=== PATIENT | female | born 1945 | race Caucasian/White ===

== ENCOUNTER 2018-12-16 09:57 | Inpatient (IN) | payer MEDICARE ==
[2018-12-16] MEDS ORDERED: Tuberculin, PPD 5 Units/0.1 ML 1 ML MDV IDERM ONE (16:00)
[2018-12-16] MEDS ORDERED: HYPROMELLOSE OP PRN (16:11)
[2018-12-16] MEDS ORDERED: DEXTRAN OP PRN (16:11)
[2018-12-16] MEDS ORDERED: LIDOCAINE TP SCH (16:15)
[2018-12-16] MEDS ORDERED: LIDOCAINE TP PRN (16:36)
[2018-12-16] MEDS: Acetaminophen 325 MG Tab PO SCH ×2 (18:15→20:37)
[2018-12-16] MEDS: Carbidopa/Levodopa 25-100 MG Tab PO SCH ×2 (19:44)
[2018-12-16] MEDS: Pantoprazole 40 MG Tab.CR PO SCH (19:44)
[2018-12-16] MEDS: Melatonin 3 MG Tab PO SCH (19:44)
[2018-12-16] MEDS ORDERED: CARBIDOPA PO SCH (20:00)
[2018-12-16] MEDS ORDERED: Non-Formulary Medication 1 Each (Carboxymethylcellulos/Glycerin [Refresh Optive] 1 DROP) EYEBOTH SCH (20:00)
[2018-12-16] MEDS ORDERED: Carboxymethylcellulose Sodium 1% Ophth Gel 15 ML Bottle EYEBOTH SCH (20:00)
[2018-12-16] MEDS ORDERED: LEVODOPA PO SCH (20:00)
[2018-12-17] MEDS: Ibuprofen 600 MG Tab PO PRN ×3 (04:47→19:19)
[2018-12-17] MEDS ORDERED: VITAMIN B COMPLEX PO SCH (08:00)
[2018-12-17] MEDS: Acetaminophen 325 MG Tab PO SCH ×4 (08:21→20:10)
[2018-12-17] MEDS: DULoxetine 60 MG Cap PO SCH (08:22)
[2018-12-17] MEDS: Polyethylene Glycol 3350 Powder 17 GM Packet PO SCH (08:22)
[2018-12-17] MEDS: Carbidopa/Levodopa 25-100 MG Tab PO SCH ×3 (08:22→20:09)
[2018-12-17] MEDS: Polyvinyl Alcohol 1.4% Ophth Soln 15 ML Bottle EYEBOTH SCH ×3 (12:04→20:10)
[2018-12-17] MEDS: Melatonin 3 MG Tab PO SCH (20:09)
[2018-12-17] MEDS: Pantoprazole 40 MG Tab.CR PO SCH (20:10)
[2018-12-18] MEDS: Ibuprofen 600 MG Tab PO PRN ×3 (03:10→17:15)
[2018-12-18] MEDS: Polyethylene Glycol 3350 Powder 17 GM Packet PO SCH (07:39)
[2018-12-18] MEDS: Lidocaine 5% 700 MG Patch TRDERM SCH (07:40)
[2018-12-18] MEDS: Polyvinyl Alcohol 1.4% Ophth Soln 15 ML Bottle EYEBOTH SCH ×4 (07:43→19:59)
[2018-12-18] MEDS: Acetaminophen 325 MG Tab PO SCH ×4 (07:44→19:57)
[2018-12-18] MEDS: DULoxetine 60 MG Cap PO SCH (07:44)
[2018-12-18] MEDS: Carbidopa/Levodopa 25-100 MG Tab PO SCH ×3 (07:44→19:57)
[2018-12-18] MEDS: Multivitamins with Iron/Calcium/Folic Acid/Minerals Tab PO SCH (07:45)
--- NOTE | 2018-12-18 09:44 | PCM.HP ---
H&P History of Present Illness - General Date of Service: 12/16/18 Admit Problem/Dx: Admission Diagnosis/Problem Admission Diagnosis/Problem Weakness Source of Information: Old Records, RN Notes Reviewed History Limitations: Reports: Other (dementia) - History of Present Illness Initial Comments - Free Text/Narative: This is a pleasant 73yo F admitted to swing bed post C1-C2 vertebral facture. She has family in [place] and they state she has a PMH of progressive supranuclear palsy. She is in a hard collar and wheelchair but is working with therapy for ambulation and transfers while maintaining immobilization of her vertebrae. Onset of Symptoms: Reports: Sudden Location: Reports: Neck Severity: Severe Associated Symptoms: Reports: Weakness Posterior Neck Pain Score (Numeric/FACES): 0 - Related Data Allergies/Adverse Reactions: Allergies Allergy/AdvReac Type Severity Reaction Status Date / Time metronidazole Allergy Cannot Verified 12/16/18 10:46 Remember nortriptyline Allergy Cannot Verified 12/16/18 10:46 Remember tramadol Allergy Cannot Verified 12/16/18 10:46 Remember Home Medications: Home Meds Acetaminophen [Tylenol] 650 mg PO QID 12/16/18 [History] Carbidopa/Levodopa [Carbidopa-Levo ER 25-100] 1 each PO TID 12/16/18 [History] Carboxymethylcellulos/Glycerin [Refresh Optive] 1 drop EYEBOTH QID 12/16/18 [ History] Carboxymethylcellulose Sodium [Refresh Liquigel 1% Ophth Soln] 2 drop OP QPM [History] DULoxetine [Cymbalta] 60 mg PO DAILY 12/16/18 [History] Dextran 70/Hypromellose [Artificial Tears] 1 - 2 drop OP BID PRN 12/16/18 [ History] Ibuprofen 600 mg PO Q6H PRN 12/16/18 [History] Lidocaine [Aspercreme] 1 each TP Q12H 12/16/18 [History] Melatonin 6 mg PO QPM 12/16/18 [History] Pantoprazole Sodium [Protonix] 40 mg PO QPM 12/16/18 [History] Polyethylene Glycol 3350 [MiraLAX] 17 gm PO DAILY 12/16/18 [History] Sennosides/Docusate Sodium [Senna-Docusate Sodium Tablet] 1 each PO DAILY [History] Vitamin B Complex [B Complex] 1 each PO DAILY 12/16/18 [History] Past Medical History Gastrointestinal History: Reports: GERD Musculoskeletal History: Reports: Fracture, Other (See Below) Other Musculoskeletal History: C1 and C2 closed fracture; multiple closed freactures of facial bones Neurological History: Reports: Parkinson's Psychiatric History: Reports: Dementia - Past Surgical History GI Surgical History: Reports: None Neurological Surgical History: Reports: None Musculoskeletal Surgical History: Reports: None Social & Family History - Family History Family Medical History: Noncontributory H&P Review of Systems - Review of Systems: Review Of Systems: ROS reveals no pertinent complaints other than HPI. Exam - Exam Exam: See Below - Vital Signs Vital Signs: Last Vital Signs Temp 35.8 C 12/18/18 07:30 Pulse 74 12/18/18 07:30 Resp 17 12/17/18 19:47 BP 122/68 12/18/18 07:30 Pulse Ox 98 12/18/18 07:30 Weight: 53.796 kg - Exam General: Alert, Cooperative HEENT: PERRLA, Conjunctiva Clear, EACs Clear, EOMI Neck: Other (hard collar present) Lungs: Clear to Auscultation, Normal Respiratory Effort Cardiovascular: Regular Rate, Regular Rhythm GI/Abdominal Exam: Normal Bowel Sounds, Soft, Non-Tender Back Exam: Normal Inspection Extremities: Normal Inspection, Normal Range of Motion Peripheral Pulses: 2+: Dorsalis Pedis (L), Dorsalis Pedis (R) Skin: Warm, Dry, Intact Neurological: Cranial Nerves Intact, Reflexes Equal Bilateral Neuro Extensive - Mental Status: Disorientation to Place, Disorientation to Time Psychiatric: Alert, Labile Mood - Patient Data Alejandro Results Last 24 hrs: Microbiology 12/16/18 13:14 MRSA Surveillance Culture - Final Nasal, Unspecified NO MRSA ISOLATED - Problem List (1) Fracture of cervical spine without spinal cord lesion SNOMED Code(s): 907257174 ICD Code: S12.9XXA - FRACTURE OF NECK, UNSPECIFIED, INITIAL ENCOUNTER Status: Acute Priority: High Current Visit: Yes Qualifiers: Encounter type: subsequent encounter Qualified Code(s): S12.9XXD - Fracture of neck, unspecified, subsequent encounter (2) Multiple facial bone fractures SNOMED Code(s): 964326432 ICD Code: S02.92XA - UNSP FRACTURE OF FACIAL BONES, INIT FOR CLOS FX Status : Acute Priority: High Current Visit: Yes (3) Traumatic ecchymosis of forehead SNOMED Code(s): 297271773 ICD Code: S00.83XA - CONTUSION OF OTHER PART OF HEAD, INITIAL ENCOUNTER Status: Acute Priority: High Current Visit: Yes Problem List Initiated/Reviewed/Updated: Yes Orders Last 24hrs: Active Orders 24 hr Category Date Time Status Lidocaine 5% [Lidoderm 5%] Med 12/18/18 08:00 Active 700 mg TRDERM DAILY Multivitamins w-Iron/Ca/FA/Min [Thera M Plus] Med 12/18/18 08:00 Active 1 tab PO DAILY Polyvinyl Alcohol [LiquiTears 1.4% Ophth Soln] Med 12/17/18 12:00 Active 1 - 2 ml EYEBOTH QID Remove Patch Med 12/18/18 08:00 Active 1 ea TRDERM DAILY Tuberculin, PPD [Aplisol] Med 12/30/18 16:30 Once 5 unit IDERM ONETIME ONE Medication Orders Acetaminophen (Tylenol) 650 mg PO QID [facility] Last Admin: 12/18/18 07:44 Dose: 650 mg Admin: 12/17/18 20:10 Dose: 650 mg Admin: 12/17/18 16:50 Dose: 650 mg Admin: 12/17/18 12:03 Dose: 650 mg Admin: 12/17/18 08:21 Dose: 650 mg Admin: 12/16/18 20:37 Dose: Not Given Admin: 12/16/18 18:15 Dose: 650 mg Artificial Tears (Refresh Liquigel 1%) 0 ml EYEBOTH QPM [facility] Last Admin: 12/16/18 20:37 Dose: 2 drop Artificial Tears (Liquitears 1.4% Ophth Soln) 1 - 2 ml EYEBOTH QID [facility] Last Admin: 12/18/18 07:43 Dose: 1 ml Admin: 12/17/18 20:10 Dose: 1 ml Admin: 12/17/18 16:50 Dose: 1 ml Admin: 12/17/18 12:04 Dose: 1 ml Carbidopa/Levodopa (Sinemet 25-100 Mg) 1 tab PO TID [facility] Last Admin: 12/18/18 07:44 Dose: 1 tab Admin: 12/17/18 20:09 Dose: 1 tab Admin: 12/17/18 14:59 Dose: 1 tab Admin: 12/17/18 08:22 Dose: 1 tab Admin: 12/16/18 19:44 Dose: 1 tab Admin: 12/16/18 19:44 Dose: Not Given Duloxetine HCl (Cymbalta) 60 mg PO DAILY [facility] Last Admin: 12/18/18 07:44 Dose: 60 mg Admin: 12/17/18 08:22 Dose: 60 mg Ibuprofen (Motrin) 600 mg PO Q6H PRN PRN Reason: Pain Last Admin: 12/18/18 03:10 Dose: 600 mg Admin: 12/17/18 19:19 Dose: 600 mg Admin: 12/17/18 12:18 Dose: 600 mg Admin: 12/17/18 04:47 Dose: 600 mg Lidocaine (Lidoderm 5%) 700 mg TRDERM DAILY [facility] Last Admin: 12/18/18 07:40 Dose: 700 mg Melatonin (Melatonin) 6 mg PO QPM [facility] Last Admin: 12/17/18 20:09 Dose: 6 mg Admin: 12/16/18 19:44 Dose: 6 mg Miscellaneous Information (Remove Patch) 1 ea TRDERM DAILY [facility] Multivitamins/Minerals (Thera M Plus) 1 tab PO DAILY [facility] Last Admin: 12/18/18 07:45 Dose: 1 tab Pantoprazole Sodium (Protonix) 40 mg PO QPM [facility] Last Admin: 12/17/18 20:10 Dose: 40 mg Admin: 12/16/18 19:44 Dose: 40 mg Polyethylene Glycol (Miralax) 17 gm PO DAILY [facility] Last Admin: 12/18/18 07:39 Dose: 17 gm Admin: 12/17/18 08:22 Dose: 17 gm Senna/Docusate Sodium (Senna Plus) 1 tab PO DAILY [facility] Last Admin: 12/18/18 07:45 Dose: 1 tab Admin: 12/17/18 08:21 Dose: 1 tab Tuberculin PPD (Aplisol) 5 unit IDERM ONETIME ONE Stop: 12/30/18 16:31 Assessment/Plan Comment:: Patient admitted to swing bed for physical and occupational therapy and strengthening. We will continue to closely monitor C1-C2 management. Continue pain management.
[2018-12-18] MEDS ORDERED: Ondansetron 4 MG Tab.DIS PO PRN (16:47)
[2018-12-18] MEDS: LORazepam 0.5 MG Tab PO PRN (19:56)
[2018-12-18] MEDS: Pantoprazole 40 MG Tab.CR PO SCH (19:57)
[2018-12-18] MEDS: Melatonin 3 MG Tab PO SCH (19:59)
[2018-12-19] MEDS: Ibuprofen 600 MG Tab PO PRN ×2 (03:16→20:14)
[2018-12-19] MEDS: Polyethylene Glycol 3350 Powder 17 GM Packet PO SCH (08:30)
[2018-12-19] MEDS: Polyvinyl Alcohol 1.4% Ophth Soln 15 ML Bottle EYEBOTH SCH ×4 (08:31→20:17)
[2018-12-19] MEDS: Lidocaine 5% 700 MG Patch TRDERM SCH (08:31)
[2018-12-19] MEDS: DULoxetine 60 MG Cap PO SCH (08:35)
[2018-12-19] MEDS: Acetaminophen 325 MG Tab PO SCH ×4 (08:35→20:16)
[2018-12-19] MEDS: Multivitamins with Iron/Calcium/Folic Acid/Minerals Tab PO SCH (08:36)
[2018-12-19] MEDS: Carbidopa/Levodopa 25-100 MG Tab PO SCH ×3 (08:36→20:14)
[2018-12-19] MEDS: Pantoprazole 40 MG Tab.CR PO SCH (20:14)
[2018-12-19] MEDS: Melatonin 3 MG Tab PO SCH (20:15)
[2018-12-20] MEDS: DULoxetine 60 MG Cap PO SCH (08:20)
[2018-12-20] MEDS: Multivitamins with Iron/Calcium/Folic Acid/Minerals Tab PO SCH (08:20)
[2018-12-20] MEDS: Carbidopa/Levodopa 25-100 MG Tab PO SCH ×3 (08:20→19:24)
[2018-12-20] MEDS: Acetaminophen 325 MG Tab PO SCH ×4 (08:21→19:23)
[2018-12-20] MEDS: Polyvinyl Alcohol 1.4% Ophth Soln 15 ML Bottle EYEBOTH SCH ×4 (08:21→19:32)
[2018-12-20] MEDS: Lidocaine 5% 700 MG Patch TRDERM SCH (08:22)
[2018-12-20] MEDS: Polyethylene Glycol 3350 Powder 17 GM Packet PO SCH (08:22)
[2018-12-20] MEDS: Melatonin 3 MG Tab PO SCH (19:23)
[2018-12-20] MEDS: Pantoprazole 40 MG Tab.CR PO SCH (19:23)
[2018-12-20] MEDS: Ibuprofen 600 MG Tab PO PRN (19:32)
[2018-12-21] MEDS: Lidocaine 5% 700 MG Patch TRDERM SCH (07:39)
[2018-12-21] MEDS: Polyvinyl Alcohol 1.4% Ophth Soln 15 ML Bottle EYEBOTH SCH ×4 (07:39→19:48)
[2018-12-21] MEDS: Multivitamins with Iron/Calcium/Folic Acid/Minerals Tab PO SCH (07:39)
[2018-12-21] MEDS: Polyethylene Glycol 3350 Powder 17 GM Packet PO SCH (07:39)
[2018-12-21] MEDS: Carbidopa/Levodopa 25-100 MG Tab PO SCH ×3 (07:39→19:50)
[2018-12-21] MEDS: DULoxetine 60 MG Cap PO SCH (07:39)
[2018-12-21] MEDS: Acetaminophen 325 MG Tab PO SCH ×4 (07:40→19:52)
[2018-12-21] MEDS: Ibuprofen 600 MG Tab PO PRN ×2 (08:19→19:50)
[2018-12-21] MEDS: Pantoprazole 40 MG Tab.CR PO SCH (19:48)
[2018-12-21] MEDS: Melatonin 3 MG Tab PO SCH (19:48)
[2018-12-22] MEDS: Ibuprofen 600 MG Tab PO PRN ×2 (07:36→18:00)
[2018-12-22] MEDS: DULoxetine 60 MG Cap PO SCH (08:27)
[2018-12-22] MEDS: Carbidopa/Levodopa 25-100 MG Tab PO SCH ×3 (08:28→19:40)
[2018-12-22] MEDS: Polyethylene Glycol 3350 Powder 17 GM Packet PO SCH (08:28)
[2018-12-22] MEDS: Acetaminophen 325 MG Tab PO SCH ×4 (08:28→19:40)
[2018-12-22] MEDS: Multivitamins with Iron/Calcium/Folic Acid/Minerals Tab PO SCH (08:28)
[2018-12-22] MEDS: Polyvinyl Alcohol 1.4% Ophth Soln 15 ML Bottle EYEBOTH SCH ×4 (08:28→19:45)
[2018-12-22] MEDS: Lidocaine 5% 700 MG Patch TRDERM SCH (08:29)
[2018-12-22] MEDS: Melatonin 3 MG Tab PO SCH (19:39)
[2018-12-22] MEDS: Pantoprazole 40 MG Tab.CR PO SCH (19:40)
[2018-12-23] MEDS: Carbidopa/Levodopa 25-100 MG Tab PO SCH ×3 (07:28→20:09)
[2018-12-23] MEDS: DULoxetine 60 MG Cap PO SCH (07:28)
[2018-12-23] MEDS: Polyethylene Glycol 3350 Powder 17 GM Packet PO SCH (07:29)
[2018-12-23] MEDS: Acetaminophen 325 MG Tab PO SCH ×4 (07:29→20:08)
[2018-12-23] MEDS: Lidocaine 5% 700 MG Patch TRDERM SCH (07:29)
[2018-12-23] MEDS: Multivitamins with Iron/Calcium/Folic Acid/Minerals Tab PO SCH (07:29)
[2018-12-23] MEDS: Polyvinyl Alcohol 1.4% Ophth Soln 15 ML Bottle EYEBOTH SCH ×4 (07:30→20:11)
[2018-12-23] MEDS: Melatonin 3 MG Tab PO SCH (20:07)
[2018-12-23] MEDS: Pantoprazole 40 MG Tab.CR PO SCH (20:09)
[2018-12-23] MEDS: Ibuprofen 600 MG Tab PO PRN (20:11)
[2018-12-24] MEDS: Lidocaine 5% 700 MG Patch TRDERM SCH (08:49)
[2018-12-24] MEDS: DULoxetine 60 MG Cap PO SCH (08:49)
[2018-12-24] MEDS: Acetaminophen 325 MG Tab PO SCH ×4 (08:49→20:41)
[2018-12-24] MEDS: Multivitamins with Iron/Calcium/Folic Acid/Minerals Tab PO SCH (08:49)
[2018-12-24] MEDS: Carbidopa/Levodopa 25-100 MG Tab PO SCH ×3 (08:49→20:41)
[2018-12-24] MEDS: Polyethylene Glycol 3350 Powder 17 GM Packet PO SCH (08:51)
[2018-12-24] MEDS: Polyvinyl Alcohol 1.4% Ophth Soln 15 ML Bottle EYEBOTH SCH ×4 (08:51→20:43)
[2018-12-24] MEDS: Ibuprofen 600 MG Tab PO PRN (14:25)
--- NOTE | 2018-12-24 16:35 | CT ---
Date of Service: 12/24/18 Clinical Data: UNENHANCED BRAIN CT: Multislice acquisition through the brain without IV contrast was performed. No priors. There is diffuse cerebral atrophy. There are periventricular lucencies bilaterally consistent with small vessel ischemic change. No masses or mass effect. No intracranial hemorrhage. There are multiple facial fractures. There is a comminuted fracture through the zygomatic arch on the left. There is also a comminuted displaced fracture through the lateral wall of the left maxillary sinus and a comminuted minimally displaced fracture through the lateral wall of the left orbit. There is a minimally displaced comminuted fracture through the lateral wall of the right orbit. There is a displaced comminuted fracture through the lateral wall of the right maxillary sinus. There is also a faint lucency through the parietal bone on the right suspicious for a fracture There is fluid and mucosal thickening in the right maxillary sinus. There is also mucosal thickening in the left maxillary sinus. There is deviation of the nasal septum to the right. There is a comminuted fracture through the anterior arch of C1. I do not see any other definite fractures. [id number] [facility]
--- NOTE | 2018-12-24 16:42 | CT ---
Date of Service: 12/24/18 Clinical Data: CERVICAL SPINE CT: Multislice axial acquisition was performed. Axial images and sagittal and coronal reformations are reviewed. There is a comminuted fracture through the anterior arch of C1. There are multiple osseous fragments adjacent to the odontoid process of C2. These do appear to be partially corticated and may be chronic. I do not see any other fractures. There is slight anterolisthesis of C3 on C4 and of C4 on C5. There is degenerative disk disease throughout the cervical spine. There is facet joint hypertrophy throughout the cervical spine. No other acute abnormalities. The visualized lung apices are clear. The soft tissues are unremarkable. The patient's physician was notified of these findings. [id number] [facility]TD[facility]
[2018-12-24] MEDS: Ciprofloxacin 500 MG Tab PO SCH (20:41)
[2018-12-24] MEDS: Pantoprazole 40 MG Tab.CR PO SCH (20:41)
[2018-12-24] MEDS: Melatonin 3 MG Tab PO SCH (20:41)
[2018-12-24] MEDS: LORazepam 0.5 MG Tab PO PRN (21:16)
[2018-12-25] MEDS: Ibuprofen 600 MG Tab PO PRN ×2 (05:16→19:27)
[2018-12-25] MEDS: Polyvinyl Alcohol 1.4% Ophth Soln 15 ML Bottle EYEBOTH SCH ×4 (08:21→19:27)
[2018-12-25] MEDS: Polyethylene Glycol 3350 Powder 17 GM Packet PO SCH (08:21)
[2018-12-25] MEDS: Lidocaine 5% 700 MG Patch TRDERM SCH (08:21)
[2018-12-25] MEDS: Multivitamins with Iron/Calcium/Folic Acid/Minerals Tab PO SCH (08:22)
[2018-12-25] MEDS: Ciprofloxacin 500 MG Tab PO SCH ×2 (08:22→19:26)
[2018-12-25] MEDS: Acetaminophen 325 MG Tab PO SCH ×4 (08:22→19:26)
[2018-12-25] MEDS: Carbidopa/Levodopa 25-100 MG Tab PO SCH ×3 (08:22→19:27)
[2018-12-25] MEDS: DULoxetine 60 MG Cap PO SCH (08:22)
[2018-12-25] MEDS: LORazepam 0.5 MG Tab PO PRN (19:26)
[2018-12-25] MEDS: Melatonin 3 MG Tab PO SCH (19:26)
[2018-12-25] MEDS: Pantoprazole 40 MG Tab.CR PO SCH (19:27)
[2018-12-26] MEDS: Carbidopa/Levodopa 25-100 MG Tab PO SCH ×3 (08:02→20:12)
[2018-12-26] MEDS: Ciprofloxacin 500 MG Tab PO SCH ×2 (08:02→20:12)
[2018-12-26] MEDS: Polyethylene Glycol 3350 Powder 17 GM Packet PO SCH (08:02)
[2018-12-26] MEDS: DULoxetine 60 MG Cap PO SCH (08:03)
[2018-12-26] MEDS: Multivitamins with Iron/Calcium/Folic Acid/Minerals Tab PO SCH (08:03)
[2018-12-26] MEDS: Ibuprofen 600 MG Tab PO PRN ×2 (08:03→20:11)
[2018-12-26] MEDS: Acetaminophen 325 MG Tab PO SCH ×4 (08:03→20:10)
[2018-12-26] MEDS: Lidocaine 5% 700 MG Patch TRDERM SCH (08:04)
[2018-12-26] MEDS: Polyvinyl Alcohol 1.4% Ophth Soln 15 ML Bottle EYEBOTH SCH ×4 (08:04→20:17)
[2018-12-26] MEDS: Melatonin 3 MG Tab PO SCH (20:10)
[2018-12-26] MEDS: Pantoprazole 40 MG Tab.CR PO SCH (20:11)
[2018-12-26] MEDS: LORazepam 0.5 MG Tab PO PRN (20:12)
--- NOTE | 2018-12-26 21:35 | PCM.PN ---
- General Info Date of Service: 12/26/18 Subjective Update: Apparently patient had fall on , where she slid off her bed and landed on the soft padding on the floor. she did sustained a brusie over the right latera eye borw. No other injuries. Pt did have her C-collar on.She did have CT Cspine and head, as the nursing staff taught she was slightly confused and tired since the fall. Functional Status: Reports: Pain Controlled, Tolerating Diet, Ambulating, Urinating - Review of Systems General: Reports: Weakness, Fatigue. Denies: Fever HEENT: Denies: Sinus Congestion, Sore Throat Cardiovascular: Denies: Chest Pain, Palpitations Gastrointestinal: Denies: Abdominal Pain, Nausea, Vomiting Genitourinary: Denies: Dysuria, Frequency Musculoskeletal: Denies: Joint Pain, Joint Swelling Neurological: Denies: Confusion, Dizziness, Headache, Numbness, Tingling - Patient Data Vitals - Most Recent: Last Vital Signs Temp 98.1 F 12/26/18 08:00 Pulse 85 12/26/18 08:00 Resp 18 12/25/18 10:00 BP 117/64 12/26/18 08:00 Pulse Ox 96 12/26/18 08:00 Weight - Most Recent: 53.796 kg Alejandro Results Last 24 Hours: Microbiology 12/24/18 16:50 Urine Culture - Final Urine, Catheterized Escherichia Coli Med Orders - Current: Current Medications Acetaminophen (Tylenol) 650 mg PO QID [facility] Last Admin: 12/26/18 20:10 Dose: 650 mg Artificial Tears (Liquitears 1.4% Ophth Soln) 1 - 2 ml EYEBOTH QID [facility] Last Admin: 12/26/18 20:17 Dose: 1 drop Carbidopa/Levodopa (Sinemet 25-100 Mg) 1 tab PO TID [facility] Last Admin: 12/26/18 20:12 Dose: 1 tab Ciprofloxacin (Ciprofloxacin Hcl) 500 mg PO BID [facility] Stop: 12/31/18 08:00 Last Admin: 12/26/18 20:12 Dose: 500 mg Duloxetine HCl (Cymbalta) 60 mg PO DAILY [facility] Last Admin: 12/26/18 08:03 Dose: 60 mg Ibuprofen (Motrin) 600 mg PO Q6H PRN PRN Reason: Pain Last Admin: 12/26/18 20:11 Dose: 600 mg Lidocaine (Lidoderm 5%) 700 mg TRDERM DAILY [facility] Last Admin: 12/26/18 08:04 Dose: 700 mg Lorazepam (Ativan) 0.5 mg PO Q8H PRN PRN Reason: Agitation Last Admin: 12/26/18 20:12 Dose: 0.5 mg Melatonin (Melatonin) 6 mg PO QPM [facility] Last Admin: 12/26/18 20:10 Dose: 6 mg Miscellaneous Information (Remove Patch) 1 ea TRDERM DAILY@1999 [facility] Last Admin: 12/25/18 20:00 Dose: 1 ea Multivitamins/Minerals (Thera M Plus) 1 tab PO DAILY [facility] Last Admin: 12/26/18 08:03 Dose: 1 tab Ondansetron HCl (Zofran Odt) 4 mg PO Q6H PRN PRN Reason: Nausea/Vomiting Pantoprazole Sodium (Protonix) 40 mg PO QPM [facility] Last Admin: 12/26/18 20:11 Dose: 40 mg Polyethylene Glycol (Miralax) 17 gm PO DAILY [facility] Last Admin: 12/26/18 08:02 Dose: 17 gm Senna/Docusate Sodium (Senna Plus) 1 tab PO DAILY [facility] Last Admin: 12/26/18 08:03 Dose: 1 tab Tuberculin PPD (Aplisol) 5 unit IDERM ONETIME ONE Stop: 12/30/18 16:31 Discontinued Medications Artificial Tears (Refresh Liquigel 1%) 0 ml EYEBOTH QPM [facility] Last Admin: 12/16/18 20:37 Dose: 2 drop Miscellaneous Information (Remove Patch) 1 ea TRDERM DAILY [facility] Last Admin: 12/18/18 10:43 Dose: Not Given Tuberculin PPD (Aplisol) 5 unit IDERM ONETIME ONE Stop: 12/16/18 16:01 Last Admin: 12/16/18 16:30 Dose: 5 unit - Exam General: Alert, Oriented, Cooperative, Other (C-collar in palce) HEENT: Pupils Equal, Pupils Reactive, EOMI, Mucous Membr. Moist/[place] Neck: Supple Lungs: Clear to Auscultation, Normal Respiratory Effort Cardiovascular: Regular Rate, Regular Rhythm GI/Abdominal Exam: Normal Bowel Sounds, Soft, Non-Tender, No Organomegaly, No Distention, No Abnormal Bruit, No Mass, Pelvis Stable Extremities: Normal Inspection, Normal Range of Motion, Non-Tender, No Pedal Edema, Normal Capillary Refill Skin: Warm, Intact, Ecchymosis, Other (over the right lateral aspect of the eyebrow about 2 cm , minimal tenderness to touch.) - Problem List & Annotations (1) Fracture of cervical spine without spinal cord lesion SNOMED Code(s): 628668494 Code(s): S12.9XXA - FRACTURE OF NECK, UNSPECIFIED, INITIAL ENCOUNTER Status : Acute Current Visit: Yes (2) Multiple facial bone fractures SNOMED Code(s): 193473797 Code(s): S02.92XA - UNSP FRACTURE OF FACIAL BONES, INIT FOR CLOS FX Status : Acute Current Visit: Yes (3) UTI (urinary tract infection) SNOMED Code(s): 18079231 Code(s): N39.0 - URINARY TRACT INFECTION, SITE NOT SPECIFIED Status: Acute Current Visit: Yes (4) Traumatic ecchymosis of forehead SNOMED Code(s): 967449182 Code(s): S00.83XA - CONTUSION OF OTHER PART OF HEAD, INITIAL ENCOUNTER Status: Acute Current Visit: Yes - Problem List Review Problem List Initiated/Reviewed/Updated: Yes - Assessment Assessment:: C1 comminuted fracture in C-collar Multiple recent facial fractures UTI - Plan Plan:: Pt's head Ct was negative for bleed. CT C-spine shows recent facial fractures and C 1 fracture. No new injury other than right eyebrow ecchymosis Her UA show + leucs with 30-40 wbc. Pt was started cipro 500mg BID for 1 wk. Also increased fluid intake orally.
[2018-12-27] MEDS: Acetaminophen 325 MG Tab PO SCH ×4 (08:15→19:52)
[2018-12-27] MEDS: Lidocaine 5% 700 MG Patch TRDERM SCH (08:15)
[2018-12-27] MEDS: Polyvinyl Alcohol 1.4% Ophth Soln 15 ML Bottle EYEBOTH SCH ×4 (08:15→19:51)
[2018-12-27] MEDS: Polyethylene Glycol 3350 Powder 17 GM Packet PO SCH (08:15)
[2018-12-27] MEDS: DULoxetine 60 MG Cap PO SCH (08:16)
[2018-12-27] MEDS: Ciprofloxacin 500 MG Tab PO SCH ×2 (08:16→19:51)
[2018-12-27] MEDS: Carbidopa/Levodopa 25-100 MG Tab PO SCH ×3 (08:16→19:51)
[2018-12-27] MEDS: Multivitamins with Iron/Calcium/Folic Acid/Minerals Tab PO SCH (12:02)
[2018-12-27] MEDS: Ibuprofen 600 MG Tab PO PRN (14:07)
[2018-12-27] MEDS ORDERED: Ketorolac 10 MG Tab ONE (17:14)
[2018-12-27] MEDS ORDERED: Ketorolac 10 MG Tab PO ONE (17:40)
[2018-12-27] MEDS ORDERED: Ketorolac 30 MG/ML SDV IM ONE (19:00)
[2018-12-27] MEDS: Melatonin 3 MG Tab PO SCH (19:51)
[2018-12-27] MEDS: Pantoprazole 40 MG Tab.CR PO SCH (19:51)
[2018-12-27] MEDS: LORazepam 0.5 MG Tab PO PRN (19:52)
[2018-12-28] MEDS: Ibuprofen 600 MG Tab PO PRN ×3 (04:29→19:33)
[2018-12-28] MEDS: Acetaminophen 325 MG Tab PO SCH ×4 (08:06→19:34)
[2018-12-28] MEDS: Lidocaine 5% 700 MG Patch TRDERM SCH (08:06)
[2018-12-28] MEDS: Ciprofloxacin 500 MG Tab PO SCH ×2 (08:07→19:33)
[2018-12-28] MEDS: Carbidopa/Levodopa 25-100 MG Tab PO SCH ×3 (08:07→19:34)
[2018-12-28] MEDS: DULoxetine 60 MG Cap PO SCH (08:07)
[2018-12-28] MEDS: Polyvinyl Alcohol 1.4% Ophth Soln 15 ML Bottle EYEBOTH SCH ×4 (08:07→19:37)
[2018-12-28] MEDS: Polyethylene Glycol 3350 Powder 17 GM Packet PO SCH (08:08)
[2018-12-28] MEDS: Multivitamins with Iron/Calcium/Folic Acid/Minerals Tab PO SCH (11:48)
[2018-12-28] MEDS: Pantoprazole 40 MG Tab.CR PO SCH (19:33)
[2018-12-28] MEDS: LORazepam 0.5 MG Tab PO PRN (19:35)
[2018-12-28] MEDS: Melatonin 3 MG Tab PO SCH (19:35)
[2018-12-29] MEDS: DULoxetine 60 MG Cap PO SCH (08:41)
[2018-12-29] MEDS: Ciprofloxacin 500 MG Tab PO SCH ×2 (08:41→19:50)
[2018-12-29] MEDS: Acetaminophen 325 MG Tab PO SCH ×4 (08:41→19:51)
[2018-12-29] MEDS: Polyvinyl Alcohol 1.4% Ophth Soln 15 ML Bottle EYEBOTH SCH ×4 (08:42→20:01)
[2018-12-29] MEDS: Carbidopa/Levodopa 25-100 MG Tab PO SCH ×3 (08:42→19:51)
[2018-12-29] MEDS: Polyethylene Glycol 3350 Powder 17 GM Packet PO SCH (08:42)
[2018-12-29] MEDS: Lidocaine 5% 700 MG Patch TRDERM SCH (08:43)
[2018-12-29] MEDS: Multivitamins with Iron/Calcium/Folic Acid/Minerals Tab PO SCH (19:50)
[2018-12-29] MEDS: Melatonin 3 MG Tab PO SCH (19:50)
[2018-12-29] MEDS: Pantoprazole 40 MG Tab.CR PO SCH (19:51)
[2018-12-30] MEDS: Ciprofloxacin 500 MG Tab PO SCH ×2 (08:40→20:12)
[2018-12-30] MEDS: DULoxetine 60 MG Cap PO SCH (08:40)
[2018-12-30] MEDS: Carbidopa/Levodopa 25-100 MG Tab PO SCH ×3 (08:40→20:12)
[2018-12-30] MEDS: Acetaminophen 325 MG Tab PO SCH ×4 (08:41→21:19)
[2018-12-30] MEDS: Polyethylene Glycol 3350 Powder 17 GM Packet PO SCH (08:42)
[2018-12-30] MEDS: Lidocaine 5% 700 MG Patch TRDERM SCH (08:43)
[2018-12-30] MEDS: Polyvinyl Alcohol 1.4% Ophth Soln 15 ML Bottle EYEBOTH SCH ×4 (08:44→20:12)
[2018-12-30] MEDS: Multivitamins with Iron/Calcium/Folic Acid/Minerals Tab PO SCH (13:14)
[2018-12-30] MEDS ORDERED: Tuberculin, PPD 5 Units/0.1 ML 1 ML MDV IDERM ONE (16:30)
[2018-12-30] MEDS ORDERED: LORazepam 1 MG Tab ONE (19:54)
[2018-12-30] MEDS: LORazepam 1 MG Tab PO SCH (20:02)
[2018-12-30] MEDS: Melatonin 3 MG Tab PO SCH (20:12)
[2018-12-30] MEDS: Pantoprazole 40 MG Tab.CR PO SCH (20:12)
[2018-12-30] MEDS: Ibuprofen 600 MG Tab PO PRN (21:14)
[2018-12-30] MEDS: LORazepam 0.5 MG Tab PO PRN (21:16)
[2018-12-31] MEDS: Ciprofloxacin 500 MG Tab PO SCH (07:50)
[2018-12-31] MEDS: Acetaminophen 325 MG Tab PO SCH ×4 (07:51→20:17)
[2018-12-31] MEDS: Carbidopa/Levodopa 25-100 MG Tab PO SCH ×3 (07:51→20:18)
[2018-12-31] MEDS: Polyvinyl Alcohol 1.4% Ophth Soln 15 ML Bottle EYEBOTH SCH ×4 (07:51→20:18)
[2018-12-31] MEDS: DULoxetine 60 MG Cap PO SCH (07:51)
[2018-12-31] MEDS: Lidocaine 5% 700 MG Patch TRDERM SCH (07:52)
[2018-12-31] MEDS: Polyethylene Glycol 3350 Powder 17 GM Packet PO SCH (08:00)
[2018-12-31] MEDS: Multivitamins with Iron/Calcium/Folic Acid/Minerals Tab PO SCH (13:12)
[2018-12-31] MEDS: LORazepam 1 MG Tab PO SCH (20:17)
[2018-12-31] MEDS: Pantoprazole 40 MG Tab.CR PO SCH (20:17)
[2018-12-31] MEDS: Ibuprofen 600 MG Tab PO PRN (20:18)
[2018-12-31] MEDS: Melatonin 3 MG Tab PO SCH (20:18)
[2019-01-01] MEDS: Polyvinyl Alcohol 1.4% Ophth Soln 15 ML Bottle EYEBOTH SCH ×4 (07:56→19:28)
[2019-01-01] MEDS: Carbidopa/Levodopa 25-100 MG Tab PO SCH ×3 (07:56→19:24)
[2019-01-01] MEDS: DULoxetine 60 MG Cap PO SCH (07:56)
[2019-01-01] MEDS: Acetaminophen 325 MG Tab PO SCH ×4 (07:56→19:25)
[2019-01-01] MEDS: Polyethylene Glycol 3350 Powder 17 GM Packet PO SCH (07:56)
[2019-01-01] MEDS: Lidocaine 5% 700 MG Patch TRDERM SCH (07:57)
--- NOTE | 2019-01-01 09:55 | PCM.PN ---
- General Info Date of Service: 01/01/19 Subjective Update: Patient has not concerns or complaints. Staff have reported symptoms of agitation and searching for her family members in the [place]. She is more mobile and does appear to have sundowning. Functional Status: Reports: Pain Controlled, Tolerating Diet - Review of Systems General: Reports: Weakness HEENT: Reports: No Symptoms Pulmonary: Reports: No Symptoms Cardiovascular: Reports: No Symptoms Gastrointestinal: Reports: No Symptoms Musculoskeletal: Reports: Neck Pain Skin: Reports: No Symptoms Neurological: Reports: Weakness Psychiatric: Reports: No Symptoms - Patient Data Vitals - Most Recent: Last Vital Signs Temp 36.2 C 01/01/19 09:42 Pulse 81 01/01/19 09:42 Resp 18 01/01/19 09:42 BP 126/82 01/01/19 09:42 Pulse Ox 95 01/01/19 09:42 Weight - Most Recent: 53.796 kg Med Orders - Current: Current Medications Acetaminophen (Tylenol) 650 mg PO QID [facility] Last Admin: 01/01/19 07:56 Dose: 650 mg Artificial Tears (Liquitears 1.4% Ophth Soln) 1 - 2 ml EYEBOTH QID [facility] Last Admin: 01/01/19 07:56 Dose: 1 drop Carbidopa/Levodopa (Sinemet 25-100 Mg) 1 tab PO TID [facility] Last Admin: 01/01/19 07:56 Dose: 1 tab Duloxetine HCl (Cymbalta) 60 mg PO DAILY [facility] Last Admin: 01/01/19 07:56 Dose: 60 mg Ibuprofen (Motrin) 600 mg PO Q6H PRN PRN Reason: Pain Last Admin: 12/31/18 20:18 Dose: 600 mg Lidocaine (Lidoderm 5%) 700 mg TRDERM DAILY [facility] Last Admin: 01/01/19 07:57 Dose: 700 mg Lorazepam (Ativan) 0.5 mg PO Q8H PRN PRN Reason: Agitation Last Admin: 12/30/18 21:16 Dose: 0.5 mg Lorazepam (Ativan) 1 mg PO BEDTIME [facility] Last Admin: 12/31/18 20:17 Dose: 1 mg Melatonin (Melatonin) 6 mg PO QPM [facility] Last Admin: 12/31/18 20:18 Dose: 6 mg Miscellaneous Information (Remove Patch) 1 ea TRDERM DAILY@1999 [facility] Last Admin: 12/31/18 20:19 Dose: 1 ea Multivitamins/Minerals (Thera M Plus) 1 tab PO DAILY@1130 [facility] Last Admin: 12/31/18 13:12 Dose: 1 tab Ondansetron HCl (Zofran Odt) 4 mg PO Q6H PRN PRN Reason: Nausea/Vomiting Last Admin: 01/01/19 09:15 Dose: 4 mg Pantoprazole Sodium (Protonix) 40 mg PO QPM [facility] Last Admin: 12/31/18 20:17 Dose: 40 mg Polyethylene Glycol (Miralax) 17 gm PO DAILY [facility] Last Admin: 01/01/19 07:56 Dose: 17 gm Senna/Docusate Sodium (Senna Plus) 1 tab PO DAILY [facility] Last Admin: 01/01/19 07:56 Dose: 1 tab Discontinued Medications Artificial Tears (Refresh Liquigel 1%) 0 ml EYEBOTH QPM [facility] Last Admin: 12/16/18 20:37 Dose: 2 drop Ciprofloxacin (Ciprofloxacin Hcl) 500 mg PO BID [facility] Stop: 12/31/18 08:00 Last Admin: 12/31/18 07:50 Dose: 500 mg Ketorolac Tromethamine (Toradol) Confirm Administered Dose 10 mg .ROUTE .STK- MED ONE Stop: 12/27/18 17:15 Last Admin: 12/27/18 17:42 Dose: 10 mg Ketorolac Tromethamine (Toradol) 10 mg PO ONETIME ONE Stop: 12/27/18 17:41 Last Admin: 12/27/18 19:00 Dose: Not Given Ketorolac Tromethamine (Toradol) 30 mg IM ONETIME ONE Stop: 12/27/18 19:01 Last Admin: 12/27/18 18:30 Dose: 30 mg Lorazepam (Ativan) Confirm Administered Dose 1 mg .ROUTE .STK-MED ONE Stop: 12/30/18 19:55 Last Admin: 12/30/18 20:00 Dose: Not Given Miscellaneous Information (Remove Patch) 1 ea TRDERM DAILY [facility] Last Admin: 12/18/18 10:43 Dose: Not Given Multivitamins/Minerals (Thera M Plus) 1 tab PO DAILY [facility] Last Admin: 12/26/18 08:03 Dose: 1 tab Tuberculin PPD (Aplisol) 5 unit IDERM ONETIME ONE Stop: 12/16/18 16:01 Last Admin: 12/16/18 16:30 Dose: 5 unit Tuberculin PPD (Aplisol) 5 unit IDERM ONETIME ONE Stop: 12/30/18 16:31 Last Admin: 12/30/18 16:08 Dose: 5 unit - Exam General: Alert, Cooperative HEENT: Pupils Equal, Pupils Reactive, EOMI Neck: Supple Lungs: Clear to Auscultation, Normal Respiratory Effort Cardiovascular: Regular Rate, Regular Rhythm GI/Abdominal Exam: Normal Bowel Sounds Back Exam: Normal Inspection Extremities: Normal Inspection Peripheral Pulses: 2+: Dorsalis Pedis (L), Dorsalis Pedis (R) Skin: Warm, Dry, Intact Neurological: No New Focal Deficit - Problem List & Annotations (1) Fracture of cervical spine without spinal cord lesion SNOMED Code(s): 252496056 Code(s): S12.9XXA - FRACTURE OF NECK, UNSPECIFIED, INITIAL ENCOUNTER Status : Acute Priority: High Current Visit: Yes Qualifiers: Encounter type: subsequent encounter Qualified Code(s): S12.9XXD - Fracture of neck, unspecified, subsequent encounter (2) Multiple facial bone fractures SNOMED Code(s): 814430931 Code(s): S02.92XA - UNSP FRACTURE OF FACIAL BONES, INIT FOR CLOS FX Status : Acute Priority: High Current Visit: Yes (3) Traumatic ecchymosis of forehead SNOMED Code(s): 465026830 Code(s): S00.83XA - CONTUSION OF OTHER PART OF HEAD, INITIAL ENCOUNTER Status: Acute Priority: High Current Visit: Yes - Problem List Review Problem List Initiated/Reviewed/Updated: Yes - Assessment Assessment:: C1 comminuted fracture in C-collar Multiple recent facial fractures UTI - Plan Plan:: Patient admitted to swing bed for physical and occupational therapy and strengthening. We will continue to closely monitor C1-C2 management. Continue pain management. 01/01/19 Patient has improved function and strength. She has sundowning and has to be redirected often during the evening. She is eating well and does appear to be doing well. She has no concerns and will continue with current rehabilitation and management.
[2019-01-01] MEDS: Multivitamins with Iron/Calcium/Folic Acid/Minerals Tab PO SCH (12:42)
[2019-01-01] MEDS: Melatonin 3 MG Tab PO SCH (19:24)
[2019-01-01] MEDS: Pantoprazole 40 MG Tab.CR PO SCH (19:24)
[2019-01-01] MEDS: Ibuprofen 600 MG Tab PO PRN (19:27)
[2019-01-01] MEDS: LORazepam 1 MG Tab PO SCH (19:27)
[2019-01-02] MEDS: Ibuprofen 600 MG Tab PO PRN (03:04)
[2019-01-02] MEDS: Polyethylene Glycol 3350 Powder 17 GM Packet PO SCH (07:45)
[2019-01-02] MEDS: Lidocaine 5% 700 MG Patch TRDERM SCH (07:45)
[2019-01-02] MEDS: Acetaminophen 325 MG Tab PO SCH ×4 (07:46→19:38)
[2019-01-02] MEDS: Polyvinyl Alcohol 1.4% Ophth Soln 15 ML Bottle EYEBOTH SCH ×4 (07:46→19:40)
[2019-01-02] MEDS: Carbidopa/Levodopa 25-100 MG Tab PO SCH ×3 (07:47→19:38)
[2019-01-02] MEDS: DULoxetine 60 MG Cap PO SCH (07:47)
[2019-01-02] MEDS ORDERED: Cyclobenzaprine 10 MG Tab PO ONE (10:55)
[2019-01-02] MEDS: Multivitamins with Iron/Calcium/Folic Acid/Minerals Tab PO SCH (12:02)
[2019-01-02] MEDS: Cyclobenzaprine 10 MG Tab PO PRN (18:27)
[2019-01-02] MEDS: Pantoprazole 40 MG Tab.CR PO SCH (19:39)
[2019-01-02] MEDS: Melatonin 3 MG Tab PO SCH (19:39)
[2019-01-02] MEDS: LORazepam 1 MG Tab PO SCH (19:39)
[2019-01-03] MEDS: Acetaminophen 325 MG Tab PO SCH ×4 (10:05→20:09)
[2019-01-03] MEDS: DULoxetine 60 MG Cap PO SCH (10:05)
[2019-01-03] MEDS: Carbidopa/Levodopa 25-100 MG Tab PO SCH ×3 (10:05→20:10)
[2019-01-03] MEDS: Polyethylene Glycol 3350 Powder 17 GM Packet PO SCH (10:06)
[2019-01-03] MEDS: Polyvinyl Alcohol 1.4% Ophth Soln 15 ML Bottle EYEBOTH SCH ×4 (10:55→20:08)
[2019-01-03] MEDS: Lidocaine 5% 700 MG Patch TRDERM SCH (10:55)
[2019-01-03] MEDS: Ibuprofen 600 MG Tab PO PRN (19:23)
[2019-01-03] MEDS: Pantoprazole 40 MG Tab.CR PO SCH (20:10)
[2019-01-03] MEDS: Melatonin 3 MG Tab PO SCH (20:10)
[2019-01-03] MEDS: LORazepam 1 MG Tab PO SCH (20:10)
[2019-01-03] MEDS: Multivitamins with Iron/Calcium/Folic Acid/Minerals Tab PO SCH (20:10)
[2019-01-03] MEDS: Cyclobenzaprine 10 MG Tab PO PRN (20:40)
[2019-01-04] MEDS: Carbidopa/Levodopa 25-100 MG Tab PO SCH ×3 (09:10→19:41)
[2019-01-04] MEDS: Acetaminophen 325 MG Tab PO SCH ×4 (09:10→19:37)
[2019-01-04] MEDS: DULoxetine 60 MG Cap PO SCH (09:12)
[2019-01-04] MEDS: Polyvinyl Alcohol 1.4% Ophth Soln 15 ML Bottle EYEBOTH SCH ×4 (09:13→19:35)
[2019-01-04] MEDS: Lidocaine 5% 700 MG Patch TRDERM SCH (09:15)
[2019-01-04] MEDS: Polyethylene Glycol 3350 Powder 17 GM Packet PO SCH (09:16)
[2019-01-04] MEDS: Multivitamins with Iron/Calcium/Folic Acid/Minerals Tab PO SCH (11:34)
[2019-01-04] MEDS: Cyclobenzaprine 10 MG Tab PO PRN ×2 (11:35→19:16)
[2019-01-04] MEDS: Melatonin 3 MG Tab PO SCH (19:40)
[2019-01-04] MEDS: Pantoprazole 40 MG Tab.CR PO SCH (19:41)
[2019-01-04] MEDS: LORazepam 1 MG Tab PO SCH (19:41)
[2019-01-05] MEDS: Polyethylene Glycol 3350 Powder 17 GM Packet PO SCH (07:21)
[2019-01-05] MEDS: Lidocaine 5% 700 MG Patch TRDERM SCH (07:21)
[2019-01-05] MEDS: Carbidopa/Levodopa 25-100 MG Tab PO SCH ×3 (07:22→19:37)
[2019-01-05] MEDS: Ibuprofen 600 MG Tab PO PRN ×2 (07:22→19:35)
[2019-01-05] MEDS: DULoxetine 60 MG Cap PO SCH (07:22)
[2019-01-05] MEDS: Acetaminophen 325 MG Tab PO SCH ×4 (07:22→19:37)
[2019-01-05] MEDS: Polyvinyl Alcohol 1.4% Ophth Soln 15 ML Bottle EYEBOTH SCH ×4 (07:23→19:34)
[2019-01-05] MEDS: Cyclobenzaprine 10 MG Tab PO PRN (07:23)
[2019-01-05] MEDS: Multivitamins with Iron/Calcium/Folic Acid/Minerals Tab PO SCH (12:04)
[2019-01-05] MEDS: Pantoprazole 40 MG Tab.CR PO SCH (19:35)
[2019-01-05] MEDS: LORazepam 1 MG Tab PO SCH (19:36)
[2019-01-05] MEDS: Melatonin 3 MG Tab PO SCH (19:36)
[2019-01-06] MEDS: DULoxetine 60 MG Cap PO SCH (08:10)
[2019-01-06] MEDS: Carbidopa/Levodopa 25-100 MG Tab PO SCH ×3 (08:10→19:32)
[2019-01-06] MEDS: Lidocaine 5% 700 MG Patch TRDERM SCH (08:11)
[2019-01-06] MEDS: Acetaminophen 325 MG Tab PO SCH ×4 (08:11→19:33)
[2019-01-06] MEDS: Polyethylene Glycol 3350 Powder 17 GM Packet PO SCH (08:11)
[2019-01-06] MEDS: Polyvinyl Alcohol 1.4% Ophth Soln 15 ML Bottle EYEBOTH SCH ×4 (08:11→19:36)
[2019-01-06] MEDS: Multivitamins with Iron/Calcium/Folic Acid/Minerals Tab PO SCH (12:27)
[2019-01-06] MEDS: Ibuprofen 600 MG Tab PO PRN ×2 (14:19→19:34)
--- NOTE | 2019-01-06 17:32 | PCM.PN ---
- General Info Date of Service: 01/06/19 Admission Dx/Problem (Free Text): Admission Diagnosis/Problem Admission Diagnosis/Problem Weakness Subjective Update: Patient status remains unchanged. Transfers and walks with assistance of two. Alert and conversive. Intermittent complaints of pain although seems to do well with repositioning and current medications. Functional Status: Reports: Pain Controlled, Tolerating Diet, Ambulating (with assistance of two), Urinating - Review of Systems General: Reports: No Symptoms HEENT: Reports: No Symptoms Pulmonary: Denies: Shortness of Breath, Cough Cardiovascular: Denies: Chest Pain Gastrointestinal: Denies: Abdominal Pain, Diarrhea, Difficulty Swallowing Genitourinary: Reports: No Symptoms Musculoskeletal: Reports: Shoulder Pain, Back Pain Skin: Reports: No Symptoms, Pruritis, Rash Neurological: Reports: No Symptoms - Patient Data Vitals - Most Recent: Last Vital Signs Temp 36.1 C 01/06/19 09:11 Pulse 72 01/06/19 09:11 Resp 18 01/06/19 09:11 BP 130/77 01/06/19 09:11 Pulse Ox 98 01/06/19 09:11 Weight - Most Recent: 53.297 kg Med Orders - Current: Current Medications Acetaminophen (Tylenol) 650 mg PO QID [facility] Last Admin: 01/06/19 16:15 Dose: 650 mg Artificial Tears (Liquitears 1.4% Ophth Soln) 1 - 2 ml EYEBOTH QID [facility] Last Admin: 01/06/19 16:16 Dose: 1 drop Carbidopa/Levodopa (Sinemet 25-100 Mg) 1 tab PO TID [facility] Last Admin: 01/06/19 14:19 Dose: 1 tab Cyclobenzaprine HCl (Flexeril) 10 mg PO TID PRN PRN Reason: Other Last Admin: 01/05/19 07:23 Dose: 10 mg Duloxetine HCl (Cymbalta) 60 mg PO DAILY [facility] Last Admin: 01/06/19 08:10 Dose: 60 mg Ibuprofen (Motrin) 600 mg PO Q6H PRN PRN Reason: Pain Last Admin: 01/06/19 14:19 Dose: 600 mg Lidocaine (Lidoderm 5%) 700 mg TRDERM DAILY [facility] Last Admin: 01/06/19 08:11 Dose: 700 mg Lorazepam (Ativan) 0.5 mg PO Q8H PRN PRN Reason: Agitation Last Admin: 12/30/18 21:16 Dose: 0.5 mg Lorazepam (Ativan) 1 mg PO BEDTIME [facility] Last Admin: 01/05/19 19:36 Dose: 1 mg Melatonin (Melatonin) 6 mg PO QPM [facility] Last Admin: 01/05/19 19:36 Dose: 6 mg Miscellaneous Information (Remove Patch) 1 ea TRDERM DAILY@2000 [facility] Last Admin: 01/05/19 19:44 Dose: 1 ea Multivitamins/Minerals (Thera M Plus) 1 tab PO DAILY@1130 [facility] Last Admin: 01/06/19 12:27 Dose: 1 tab Ondansetron HCl (Zofran Odt) 4 mg PO Q6H PRN PRN Reason: Nausea/Vomiting Last Admin: 01/01/19 09:15 Dose: 4 mg Pantoprazole Sodium (Protonix) 40 mg PO QPM [facility] Last Admin: 01/05/19 19:35 Dose: 40 mg Polyethylene Glycol (Miralax) 17 gm PO DAILY [facility] Last Admin: 01/06/19 08:11 Dose: 17 gm Senna/Docusate Sodium (Senna Plus) 1 tab PO DAILY [facility] Last Admin: 01/06/19 08:10 Dose: 1 tab Discontinued Medications Artificial Tears (Refresh Liquigel 1%) 0 ml EYEBOTH QPM [facility] Last Admin: 12/16/18 20:37 Dose: 2 drop Ciprofloxacin (Ciprofloxacin Hcl) 500 mg PO BID [facility] Stop: 12/31/18 08:00 Last Admin: 12/31/18 07:50 Dose: 500 mg Cyclobenzaprine HCl (Flexeril) 10 mg PO ONETIME ONE Stop: 01/02/19 10:56 Last Admin: 01/02/19 12:02 Dose: 10 mg Ketorolac Tromethamine (Toradol) Confirm Administered Dose 10 mg .ROUTE .STK- MED ONE Stop: 12/27/18 17:15 Last Admin: 12/27/18 17:42 Dose: 10 mg Ketorolac Tromethamine (Toradol) 10 mg PO ONETIME ONE Stop: 12/27/18 17:41 Last Admin: 12/27/18 19:00 Dose: Not Given Ketorolac Tromethamine (Toradol) 30 mg IM ONETIME ONE Stop: 12/27/18 19:01 Last Admin: 12/27/18 18:30 Dose: 30 mg Lorazepam (Ativan) Confirm Administered Dose 1 mg .ROUTE .STK-MED ONE Stop: 12/30/18 19:55 Last Admin: 12/30/18 20:00 Dose: Not Given Miscellaneous Information (Remove Patch) 1 ea TRDERM DAILY [facility] Last Admin: 12/18/18 10:43 Dose: Not Given Multivitamins/Minerals (Thera M Plus) 1 tab PO DAILY [facility] Last Admin: 12/26/18 08:03 Dose: 1 tab Tuberculin PPD (Aplisol) 5 unit IDERM ONETIME ONE Stop: 12/16/18 16:01 Last Admin: 12/16/18 16:30 Dose: 5 unit Tuberculin PPD (Aplisol) 5 unit IDERM ONETIME ONE Stop: 12/30/18 16:31 Last Admin: 12/30/18 16:08 Dose: 5 unit - Exam General: Alert, Cooperative, No Acute Distress HEENT: Pupils Equal, Pupils Reactive, EOMI, Mucous Membr. Moist/[place] Neck: Supple, Trachea Midline Lungs: Clear to Auscultation, Normal Respiratory Effort Cardiovascular: Regular Rate, Regular Rhythm GI/Abdominal Exam: Normal Bowel Sounds, Soft, Non-Tender, No Distention Back Exam: Normal Inspection Extremities: Normal Inspection Skin: Warm, Dry, Intact Neurological: No New Focal Deficit Psy/Mental Status: Alert, Normal Affect, Normal Mood - Problem List Review Problem List Initiated/Reviewed/Updated: Yes - Assessment Assessment:: C1 comminuted fracture in C-collar Multiple recent facial fractures UTI Patient remains unchanged, wearing cervical collar or soft collar. Appetite good , needs assistance with feeding. Occasional coughing when drinking fluids. Denies pain. - Plan Plan:: Patient admitted to swing bed for physical and occupational therapy and strengthening. We will continue to closely monitor C1-C2 management. Continue pain management. 01/01/19 Patient has improved function and strength. She has sundowning and has to be redirected often during the evening. She is eating well and does appear to be doing well. She has no concerns and will continue with current rehabilitation and management. 01/06/19 Continues to do well. Will continue with current rehabilitation and management. Consider move to long term facility for continued OT/PT.
[2019-01-06] MEDS: Melatonin 3 MG Tab PO SCH (19:32)
[2019-01-06] MEDS: Pantoprazole 40 MG Tab.CR PO SCH (19:32)
[2019-01-06] MEDS: LORazepam 1 MG Tab PO SCH (19:35)
[2019-01-07] MEDS: Lidocaine 5% 700 MG Patch TRDERM SCH (08:04)
[2019-01-07] MEDS: Polyvinyl Alcohol 1.4% Ophth Soln 15 ML Bottle EYEBOTH SCH ×4 (08:04→19:09)
[2019-01-07] MEDS: Polyethylene Glycol 3350 Powder 17 GM Packet PO SCH (08:04)
[2019-01-07] MEDS: Acetaminophen 325 MG Tab PO SCH ×4 (08:05→19:10)
[2019-01-07] MEDS: Carbidopa/Levodopa 25-100 MG Tab PO SCH ×3 (08:05→19:11)
[2019-01-07] MEDS: DULoxetine 60 MG Cap PO SCH (08:06)
[2019-01-07] MEDS: Multivitamins with Iron/Calcium/Folic Acid/Minerals Tab PO SCH (11:30)
[2019-01-07] MEDS: Cyclobenzaprine 10 MG Tab PO PRN (18:09)
[2019-01-07] MEDS: Ibuprofen 600 MG Tab PO PRN (19:09)
[2019-01-07] MEDS: Pantoprazole 40 MG Tab.CR PO SCH (19:11)
[2019-01-07] MEDS: LORazepam 1 MG Tab PO SCH (19:11)
[2019-01-07] MEDS: Melatonin 3 MG Tab PO SCH (19:11)
[2019-01-08] MEDS: Lidocaine 5% 700 MG Patch TRDERM SCH (08:19)
[2019-01-08] MEDS: Acetaminophen 325 MG Tab PO SCH ×4 (08:20→19:26)
[2019-01-08] MEDS: Polyethylene Glycol 3350 Powder 17 GM Packet PO SCH (08:21)
[2019-01-08] MEDS: Polyvinyl Alcohol 1.4% Ophth Soln 15 ML Bottle EYEBOTH SCH ×4 (08:21→19:27)
[2019-01-08] MEDS: DULoxetine 60 MG Cap PO SCH (08:21)
[2019-01-08] MEDS: Carbidopa/Levodopa 25-100 MG Tab PO SCH ×3 (08:21→19:28)
[2019-01-08] MEDS: Ibuprofen 600 MG Tab PO PRN (09:11)
[2019-01-08] MEDS: Cyclobenzaprine 10 MG Tab PO PRN ×2 (09:12→19:36)
[2019-01-08] MEDS: Multivitamins with Iron/Calcium/Folic Acid/Minerals Tab PO SCH (12:17)
[2019-01-08] MEDS: LORazepam 1 MG Tab PO SCH (19:27)
[2019-01-08] MEDS: Melatonin 3 MG Tab PO SCH (19:27)
[2019-01-08] MEDS: Pantoprazole 40 MG Tab.CR PO SCH (19:27)
[2019-01-09] MEDS: Lidocaine 5% 700 MG Patch TRDERM SCH (08:01)
[2019-01-09] MEDS: Polyvinyl Alcohol 1.4% Ophth Soln 15 ML Bottle EYEBOTH SCH ×4 (08:01→19:34)
[2019-01-09] MEDS: DULoxetine 60 MG Cap PO SCH (08:01)
[2019-01-09] MEDS: Carbidopa/Levodopa 25-100 MG Tab PO SCH ×3 (08:01→19:24)
[2019-01-09] MEDS: Polyethylene Glycol 3350 Powder 17 GM Packet PO SCH (08:01)
[2019-01-09] MEDS: Acetaminophen 325 MG Tab PO SCH ×4 (08:02→19:24)
[2019-01-09] MEDS: Ibuprofen 600 MG Tab PO PRN ×2 (11:03→19:25)
[2019-01-09] MEDS: Multivitamins with Iron/Calcium/Folic Acid/Minerals Tab PO SCH (13:20)
[2019-01-09] MEDS: LORazepam 0.5 MG Tab PO PRN (14:10)
[2019-01-09] MEDS: Cyclobenzaprine 10 MG Tab PO PRN (19:23)
[2019-01-09] MEDS: Pantoprazole 40 MG Tab.CR PO SCH (19:23)
[2019-01-09] MEDS: Melatonin 3 MG Tab PO SCH (19:24)
[2019-01-09] MEDS: LORazepam 1 MG Tab PO SCH (19:30)
[2019-01-10] MEDS: LORazepam 0.5 MG Tab PO PRN (05:04)
[2019-01-10] MEDS: Ibuprofen 600 MG Tab PO PRN (05:06)
[2019-01-10] MEDS: Lidocaine 5% 700 MG Patch TRDERM SCH (08:11)
[2019-01-10] MEDS: DULoxetine 60 MG Cap PO SCH (08:11)
[2019-01-10] MEDS: Acetaminophen 325 MG Tab PO SCH ×4 (08:11→19:07)
[2019-01-10] MEDS: Carbidopa/Levodopa 25-100 MG Tab PO SCH ×3 (08:11→19:08)
[2019-01-10] MEDS: Polyethylene Glycol 3350 Powder 17 GM Packet PO SCH (08:11)
[2019-01-10] MEDS: Polyvinyl Alcohol 1.4% Ophth Soln 15 ML Bottle EYEBOTH SCH ×4 (08:14→19:09)
[2019-01-10] MEDS: Multivitamins with Iron/Calcium/Folic Acid/Minerals Tab PO SCH (11:57)
[2019-01-10] MEDS: LORazepam 1 MG Tab PO SCH (19:06)
[2019-01-10] MEDS: Melatonin 3 MG Tab PO SCH (19:06)
[2019-01-10] MEDS: Pantoprazole 40 MG Tab.CR PO SCH (19:07)
[2019-01-11] MEDS: DULoxetine 60 MG Cap PO SCH (07:36)
[2019-01-11] MEDS: Lidocaine 5% 700 MG Patch TRDERM SCH (07:38)
[2019-01-11] MEDS: Polyvinyl Alcohol 1.4% Ophth Soln 15 ML Bottle EYEBOTH SCH ×4 (07:39→20:16)
[2019-01-11] MEDS: Carbidopa/Levodopa 25-100 MG Tab PO SCH ×3 (07:40→20:16)
[2019-01-11] MEDS: Acetaminophen 325 MG Tab PO SCH ×4 (07:40→21:16)
[2019-01-11] MEDS: Polyethylene Glycol 3350 Powder 17 GM Packet PO SCH (07:40)
[2019-01-11] MEDS: Multivitamins with Iron/Calcium/Folic Acid/Minerals Tab PO SCH (11:16)
[2019-01-11] MEDS: Ibuprofen 600 MG Tab PO PRN ×2 (11:17→21:18)
[2019-01-11] MEDS: Melatonin 3 MG Tab PO SCH (20:16)
[2019-01-11] MEDS: LORazepam 1 MG Tab PO SCH (20:16)
[2019-01-11] MEDS: Pantoprazole 40 MG Tab.CR PO SCH (21:17)
[2019-01-11] MEDS: Cyclobenzaprine 10 MG Tab PO PRN (21:19)
[2019-01-12] MEDS ORDERED: LORazepam 2 MG/ML SDV ONE (02:24)
[2019-01-12] MEDS ORDERED: LORazepam 2 MG/ML SDV IM ONE (02:58)
[2019-01-12] MEDS: DULoxetine 60 MG Cap PO SCH (08:10)
[2019-01-12] MEDS: Carbidopa/Levodopa 25-100 MG Tab PO SCH ×3 (08:10→19:15)
[2019-01-12] MEDS: Polyethylene Glycol 3350 Powder 17 GM Packet PO SCH (08:10)
[2019-01-12] MEDS: Acetaminophen 325 MG Tab PO SCH ×4 (08:15→19:16)
[2019-01-12] MEDS: Polyvinyl Alcohol 1.4% Ophth Soln 15 ML Bottle EYEBOTH SCH ×4 (08:28→19:17)
[2019-01-12] MEDS: Lidocaine 5% 700 MG Patch TRDERM SCH (08:30)
[2019-01-12] MEDS: Multivitamins with Iron/Calcium/Folic Acid/Minerals Tab PO SCH (11:57)
[2019-01-12] MEDS: LORazepam 0.5 MG Tab PO PRN (14:35)
[2019-01-12] MEDS: Ibuprofen 600 MG Tab PO PRN (14:35)
[2019-01-12] MEDS: Ciprofloxacin 500 MG Tab PO SCH (15:59)
[2019-01-12] MEDS: LORazepam 1 MG Tab PO SCH (19:15)
[2019-01-12] MEDS: Pantoprazole 40 MG Tab.CR PO SCH (19:15)
[2019-01-12] MEDS: Melatonin 3 MG Tab PO SCH (19:16)
[2019-01-13] MEDS: DULoxetine 60 MG Cap PO SCH (08:05)
[2019-01-13] MEDS: Ciprofloxacin 500 MG Tab PO SCH ×2 (08:05→19:36)
[2019-01-13] MEDS: Carbidopa/Levodopa 25-100 MG Tab PO SCH ×3 (08:06→19:37)
[2019-01-13] MEDS: Acetaminophen 325 MG Tab PO SCH ×4 (08:06→19:35)
[2019-01-13] MEDS: Lidocaine 5% 700 MG Patch TRDERM SCH (08:07)
[2019-01-13] MEDS: Polyvinyl Alcohol 1.4% Ophth Soln 15 ML Bottle EYEBOTH SCH ×4 (08:07→19:39)
[2019-01-13] MEDS: Polyethylene Glycol 3350 Powder 17 GM Packet PO SCH (08:08)
--- NOTE | 2019-01-13 08:56 | PCM.PN ---
- General Info Date of Service: 01/13/19 Admission Dx/Problem (Free Text): Admission Diagnosis/Problem Admission Diagnosis/Problem Weakness Subjective Update: 01-13-19 Patient status remains unchanged. Working with therapy for strengthening. Alert and conversive. Intermittent complaints of pain although seems to do well with repositioning and current medications. Staff reported some increase in confusion and weakness. Functional Status: Reports: Pain Controlled, Tolerating Diet, Urinating, Incentive Spirometry - Review of Systems General: Reports: No Symptoms HEENT: Reports: No Symptoms Pulmonary: Reports: No Symptoms Cardiovascular: Reports: No Symptoms Gastrointestinal: Reports: No Symptoms Genitourinary: Reports: Dysuria Musculoskeletal: Reports: No Symptoms Skin: Reports: No Symptoms Neurological: Reports: Confusion (Staff report some increase in confusion over last few days.) Psychiatric: Reports: No Symptoms - Patient Data Vitals - Most Recent: Last Vital Signs Temp 97.6 F 01/12/19 09:58 Pulse 90 01/12/19 09:58 Resp 18 01/12/19 09:58 BP 118/75 01/12/19 09:58 Pulse Ox 97 01/12/19 09:58 Weight - Most Recent: 117 lb 8 oz Lab Results Last 24 Hours: Laboratory Results - last 24 hr 01/12/19 01/12/19 Range/Units 08:56 13:45 Sodium 140 (136-145) mmol/L Potassium 4.5 (3.5-5.1) mmol/L Chloride 103 (98-107) mmol/L Carbon Dioxide 27.1 (21.0-32.0) mmol/L Anion Gap 14.4 (5.0-15.0) mmol/L BUN 20 (8-26) mg/dL Creatinine 0.78 (0.55-1.02) mg/dL Est Cr Clr Drug Dosing 49.29 mL/min Estimated GFR (MDRD) > 60 (>60) MLS/MIN BUN/Creatinine Ratio 25.6 H (6-25) Glucose 107 H (74-100) mg/dL Calcium 8.7 (8.5-10.1) mg/dL Total Bilirubin 0.3 (0.0-1.0) mg/dL AST 22 (15-37) U/L ALT 18 (12-78) U/L Alkaline Phosphatase 67 (46-116) U/L Total Protein 6.8 (6.4-8.2) g/dL Albumin 3.5 (3.4-5.0) g/dL Globulin 3.3 (2.2-4.2) g/dL Albumin/Globulin Ratio 1.1 (0.8-2.0) Urine Color Yellow Urine Appearance Slightly cloudy (CLEAR) Urine pH 7.0 (5.0-8.0) Ur Specific [place] 1.015 (1.003-1.030) Urine Protein Negative (NEGATIVE) mg/dL Urine Glucose (UA) Negative (NEGATIVE) mg/dL Urine Ketones Negative (NEGATIVE) mg/dL Urine Occult Blood Trace-lysed H (NEGATIVE) Urine Nitrite Negative (NEGATIVE) Urine Bilirubin Negative (NEGATIVE) Urine Urobilinogen 0.2 (0.2-1.0) E.U./dL Ur Leukocyte Esterase Moderate H (NEGATIVE) Urine RBC 5-10 H /HPF Urine WBC 75-100 H /HPF Urine WBC Clumps Few /HPF Ur Squamous Epith Cells Few /HPF Urine Bacteria Many H /HPF Med Orders - Current: Current Medications Acetaminophen (Tylenol) 650 mg PO QID [facility] Last Admin: 01/13/19 08:06 Dose: 650 mg Artificial Tears (Liquitears 1.4% Ophth Soln) 1 - 2 ml EYEBOTH QID [facility] Last Admin: 01/13/19 08:07 Dose: 1 drop Carbidopa/Levodopa (Sinemet 25-100 Mg) 1 tab PO TID [facility] Last Admin: 01/13/19 08:06 Dose: 1 tab Ciprofloxacin (Ciprofloxacin Hcl) 500 mg PO BID [facility] Last Admin: 01/13/19 08:05 Dose: 500 mg Cyclobenzaprine HCl (Flexeril) 10 mg PO BEDTIME PRN PRN Reason: Other Last Admin: 01/11/19 21:19 Dose: 10 mg Duloxetine HCl (Cymbalta) 60 mg PO DAILY [facility] Last Admin: 01/13/19 08:05 Dose: 60 mg Ibuprofen (Motrin) 600 mg PO Q6H PRN PRN Reason: Pain Last Admin: 01/12/19 14:35 Dose: 600 mg Lidocaine (Lidoderm 5%) 700 mg TRDERM DAILY [facility] Last Admin: 01/13/19 08:07 Dose: 700 mg Lorazepam (Ativan) 0.5 mg PO Q8H PRN PRN Reason: Agitation Last Admin: 01/12/19 14:35 Dose: 0.5 mg Lorazepam (Ativan) 1 mg PO BEDTIME [facility] Last Admin: 01/12/19 19:15 Dose: 1 mg Melatonin (Melatonin) 6 mg PO QPM [facility] Last Admin: 01/12/19 19:16 Dose: 6 mg Miscellaneous Information (Remove Patch) 1 ea TRDERM DAILY@2000 [facility] Last Admin: 01/12/19 19:16 Dose: 1 ea Multivitamins/Minerals (Thera M Plus) 1 tab PO DAILY@1130 [facility] Last Admin: 01/12/19 11:57 Dose: 1 tab Ondansetron HCl (Zofran Odt) 4 mg PO Q6H PRN PRN Reason: Nausea/Vomiting Last Admin: 01/01/19 09:15 Dose: 4 mg Pantoprazole Sodium (Protonix) 40 mg PO QPM [facility] Last Admin: 01/12/19 19:15 Dose: 40 mg Polyethylene Glycol (Miralax) 17 gm PO DAILY [facility] Last Admin: 01/13/19 08:08 Dose: 17 gm Senna/Docusate Sodium (Senna Plus) 1 tab PO DAILY [facility] Last Admin: 01/13/19 08:05 Dose: 1 tab Discontinued Medications Artificial Tears (Refresh Liquigel 1%) 0 ml EYEBOTH QPM [facility] Last Admin: 12/16/18 20:37 Dose: 2 drop Ciprofloxacin (Ciprofloxacin Hcl) 500 mg PO BID [facility] Stop: 12/31/18 08:00 Last Admin: 12/31/18 07:50 Dose: 500 mg Cyclobenzaprine HCl (Flexeril) 10 mg PO ONETIME ONE Stop: 01/02/19 10:56 Last Admin: 01/02/19 12:02 Dose: 10 mg Cyclobenzaprine HCl (Flexeril) 10 mg PO TID PRN PRN Reason: Other Last Admin: 01/08/19 09:12 Dose: 10 mg Ketorolac Tromethamine (Toradol) Confirm Administered Dose 10 mg .ROUTE .STK- MED ONE Stop: 12/27/18 17:15 Last Admin: 12/27/18 17:42 Dose: 10 mg Ketorolac Tromethamine (Toradol) 10 mg PO ONETIME ONE Stop: 12/27/18 17:41 Last Admin: 12/27/18 19:00 Dose: Not Given Ketorolac Tromethamine (Toradol) 30 mg IM ONETIME ONE Stop: 12/27/18 19:01 Last Admin: 12/27/18 18:30 Dose: 30 mg Lorazepam (Ativan) Confirm Administered Dose 1 mg .ROUTE .STK-MED ONE Stop: 12/30/18 19:55 Last Admin: 12/30/18 20:00 Dose: Not Given Lorazepam (Ativan) Confirm Administered Dose 2 mg .ROUTE .STK-MED ONE Stop: 01/12/19 02:25 Last Admin: 01/12/19 02:36 Dose: 0.5 mg Lorazepam (Ativan) 0.5 mg IM ONETIME ONE Stop: 01/12/19 02:59 Last Admin: 01/12/19 08:48 Dose: Not Given Miscellaneous Information (Remove Patch) 1 ea TRDERM DAILY [facility] Last Admin: 12/18/18 10:43 Dose: Not Given Multivitamins/Minerals (Thera M Plus) 1 tab PO DAILY [facility] Last Admin: 12/26/18 08:03 Dose: 1 tab Tuberculin PPD (Aplisol) 5 unit IDERM ONETIME ONE Stop: 12/16/18 16:01 Last Admin: 12/16/18 16:30 Dose: 5 unit Tuberculin PPD (Aplisol) 5 unit IDERM ONETIME ONE Stop: 12/30/18 16:31 Last Admin: 12/30/18 16:08 Dose: 5 unit - Exam General: Alert, Cooperative, No Acute Distress HEENT: Other (Has sunglasses on most of the day) Neck: Other (cervical spine brace intact) Lungs: Clear to Auscultation, Normal Respiratory Effort Cardiovascular: Regular Rate, Regular Rhythm GI/Abdominal Exam: Normal Bowel Sounds, Soft, Non-Tender, Other (Daily BM) Extremities: Non-Tender, No Pedal Edema, Normal Capillary Refill Skin: Warm, Dry Neurological: No New Focal Deficit Psy/Mental Status: Alert, Normal Affect, Normal Mood - Problem List & Annotations (1) Fracture of cervical spine without spinal cord lesion SNOMED Code(s): 523333316 Code(s): S12.9XXA - FRACTURE OF NECK, UNSPECIFIED, INITIAL ENCOUNTER Status : Acute Priority: High Current Visit: Yes Qualifiers: Encounter type: subsequent encounter Qualified Code(s): S12.9XXD - Fracture of neck, unspecified, subsequent encounter (2) UTI (urinary tract infection) SNOMED Code(s): 18829401 Code(s): N39.0 - URINARY TRACT INFECTION, SITE NOT SPECIFIED Status: Acute Current Visit: Yes - Problem List Review Problem List Initiated/Reviewed/Updated: Yes - My Orders Last 24 Hours: My Active Orders 01/12/19 15:00 Ciprofloxacin [Ciprofloxacin HCl] 500 mg PO BID - Assessment Assessment:: 01-13-19 C1 comminuted fracture in C-collar Multiple recent facial fractures UTI Patient remains unchanged, wearing cervical collar or soft collar. Appetite good , needs assistance with feeding. Occasional coughing when drinking fluids. Denies pain. Some increase in confusion. UTI recurrence. - Plan Plan:: Patient admitted to swing bed for physical and occupational therapy and strengthening. We will continue to closely monitor C1-C2 management. Continue pain management. 01/01/19 Patient has improved function and strength. She has sundowning and has to be redirected often during the evening. She is eating well and does appear to be doing well. She has no concerns and will continue with current rehabilitation and management. 01/06/19 Continues to do well. Will continue with current rehabilitation and management. Consider move to shelter facility for continued OT/PT. 01-13-19 Continue with therapy for strengthening. Will treat UTI with Cipro bid.
[2019-01-13] MEDS: Multivitamins with Iron/Calcium/Folic Acid/Minerals Tab PO SCH (12:05)
[2019-01-13] MEDS: LORazepam 0.5 MG Tab PO PRN (12:08)
[2019-01-13] MEDS: Ibuprofen 600 MG Tab PO PRN (14:05)
[2019-01-13] MEDS: Melatonin 3 MG Tab PO SCH (19:37)
[2019-01-13] MEDS: LORazepam 1 MG Tab PO SCH (19:37)
[2019-01-13] MEDS: Cyclobenzaprine 10 MG Tab PO PRN (19:38)
[2019-01-13] MEDS: Pantoprazole 40 MG Tab.CR PO SCH (19:39)
[2019-01-14] MEDS: Acetaminophen 325 MG Tab PO SCH ×4 (07:42→19:16)
[2019-01-14] MEDS: DULoxetine 60 MG Cap PO SCH (07:42)
[2019-01-14] MEDS: Ciprofloxacin 500 MG Tab PO SCH ×2 (07:44→19:15)
[2019-01-14] MEDS: Carbidopa/Levodopa 25-100 MG Tab PO SCH ×3 (07:44→19:17)
[2019-01-14] MEDS: Lidocaine 5% 700 MG Patch TRDERM SCH (07:45)
[2019-01-14] MEDS: Polyethylene Glycol 3350 Powder 17 GM Packet PO SCH (07:46)
[2019-01-14] MEDS: Polyvinyl Alcohol 1.4% Ophth Soln 15 ML Bottle EYEBOTH SCH ×4 (07:46→19:18)
[2019-01-14] MEDS: Multivitamins with Iron/Calcium/Folic Acid/Minerals Tab PO SCH (11:26)
[2019-01-14] MEDS: Ibuprofen 600 MG Tab PO PRN (13:14)
[2019-01-14] MEDS: LORazepam 0.5 MG Tab PO PRN (13:33)
[2019-01-14] MEDS: Pantoprazole 40 MG Tab.CR PO SCH (19:15)
[2019-01-14] MEDS: LORazepam 1 MG Tab PO SCH (19:16)
[2019-01-14] MEDS: Melatonin 3 MG Tab PO SCH (19:16)
[2019-01-15] MEDS: Polyvinyl Alcohol 1.4% Ophth Soln 15 ML Bottle EYEBOTH SCH ×4 (08:11→19:15)
[2019-01-15] MEDS: Polyethylene Glycol 3350 Powder 17 GM Packet PO SCH (08:34)
[2019-01-15] MEDS: Acetaminophen 325 MG Tab PO SCH ×4 (08:35→19:18)
[2019-01-15] MEDS: Lidocaine 5% 700 MG Patch TRDERM SCH (08:35)
[2019-01-15] MEDS: Carbidopa/Levodopa 25-100 MG Tab PO SCH ×3 (08:35→19:18)
[2019-01-15] MEDS: DULoxetine 60 MG Cap PO SCH (08:36)
[2019-01-15] MEDS: Ciprofloxacin 500 MG Tab PO SCH ×2 (08:36→19:16)
[2019-01-15] MEDS ORDERED: traMADol 50 MG Tab PO PRN (10:19)
[2019-01-15] MEDS ORDERED: Cyclobenzaprine 10 MG Tab PO PRN (10:20)
[2019-01-15] MEDS ORDERED: Cyclobenzaprine 10 MG Tab ONE (10:39)
[2019-01-15] MEDS: Ibuprofen 600 MG Tab PO PRN ×2 (10:45→17:29)
--- NOTE | 2019-01-15 11:43 | PCM.SN ---
- Free Text/Narrative Note: Discussed with nurse Padmini regarding patients increased muscle tone and stiffness and reports that patient is much more relaxed and able to function with prior administration of muscle relaxants. We will try twice daily dosing and monitor drowsiness as which has been reported in the past. Discussed with Pharmacy and they note methocarbamol is favorable over Cyclobenzaprine - we will switch to Methocarbamol trial BID prn and f/u as needed. Nursing staff note patient has been more agitated and in pain and discomfort. Discussed starting increased pain management as well as supportive and conservative care.
[2019-01-15] MEDS: Multivitamins with Iron/Calcium/Folic Acid/Minerals Tab PO SCH (12:15)
[2019-01-15] MEDS: LORazepam 0.5 MG Tab PO PRN (13:46)
[2019-01-15] MEDS: LORazepam 1 MG Tab PO SCH (19:16)
[2019-01-15] MEDS: Melatonin 3 MG Tab PO SCH (19:17)
[2019-01-15] MEDS: Pantoprazole 40 MG Tab.CR PO SCH (19:18)
[2019-01-15] MEDS: Acetaminophen/HYDROcodone 325-10 MG Tab PO PRN (19:24)
[2019-01-16] MEDS: Acetaminophen 325 MG Tab PO SCH ×4 (08:08→19:57)
[2019-01-16] MEDS: Ciprofloxacin 500 MG Tab PO SCH ×2 (08:09→19:59)
[2019-01-16] MEDS: DULoxetine 60 MG Cap PO SCH (08:09)
[2019-01-16] MEDS: Carbidopa/Levodopa 25-100 MG Tab PO SCH ×3 (08:09→20:04)
[2019-01-16] MEDS: Polyethylene Glycol 3350 Powder 17 GM Packet PO SCH (08:10)
[2019-01-16] MEDS: Lidocaine 5% 700 MG Patch TRDERM SCH (08:10)
[2019-01-16] MEDS: Polyvinyl Alcohol 1.4% Ophth Soln 15 ML Bottle EYEBOTH SCH ×4 (08:10→20:00)
--- NOTE | 2019-01-16 09:36 | PCM.PN ---
- General Info Date of Service: 01/16/19 Subjective Update: Patient is alert and eating with the assistance of nursing staff. She is able to state that she is in pain in the neck area. She cannot tribal judge the severity from a scale of 1-10. She is not oriented to place as she feels that this facility is in [place]. She states the year is 19 which I take for 2019. She cannot recall the month or day. Per staff she is able to get up and walk and move about on her own but is not allowed due to her risk of falling. She uses a wheelchair for movement at this time and is counseled on restricted to move in the wheelchair without restraints. Patient does appear to adhere to these guidelines. Patient denies any other pain. This can be confusing as some staff have asked if she is in pain and she has stated no. This is likely from the nature of her movement and fluctuating pain of the neck. 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 Patient has had a recent UTI and currently being treated. Functional Status: Reports: Tolerating Diet - Review of Systems HEENT: Reports: Other (neck pain and discomfort - in a hard C-collar) Pulmonary: Reports: No Symptoms Cardiovascular: Reports: No Symptoms Gastrointestinal: Reports: No Symptoms Genitourinary: Reports: No Symptoms Musculoskeletal: Reports: No Symptoms Neurological: Reports: Other (Progressive supranuclear palsy, some difficulty with speech and understanding what patient says) - Patient Data Vitals - Most Recent: Last Vital Signs Temp 36.6 C 01/15/19 08:00 Pulse 87 01/15/19 08:00 Resp 16 01/14/19 13:48 BP 141/66 H 01/15/19 08:00 Pulse Ox 98 01/15/19 08:00 Weight - Most Recent: 53.297 kg Med Orders - Current: Current Medications Acetaminophen (Tylenol) 650 mg PO QID [facility] Last Admin: 01/16/19 08:08 Dose: 650 mg Hydrocodone Bitart/Acetaminophen (Hankamer 325-10 Mg) 1 tab PO TID PRN PRN Reason: Pain Last Admin: 01/15/19 19:24 Dose: 1 tab Artificial Tears (Liquitears 1.4% Ophth Soln) 1 - 2 ml EYEBOTH QID [facility] Last Admin: 01/16/19 08:10 Dose: 1 drop Carbidopa/Levodopa (Sinemet 25-100 Mg) 1 tab PO TID [facility] Last Admin: 01/16/19 08:09 Dose: 1 tab Ciprofloxacin (Ciprofloxacin Hcl) 500 mg PO BID [facility] Stop: 01/16/19 23:59 Last Admin: 01/16/19 08:09 Dose: 500 mg Duloxetine HCl (Cymbalta) 60 mg PO DAILY [facility] Last Admin: 01/16/19 08:09 Dose: 60 mg Ibuprofen (Motrin) 600 mg PO Q6H PRN PRN Reason: Pain Last Admin: 01/15/19 17:29 Dose: 600 mg Lidocaine (Lidoderm 5%) 700 mg TRDERM DAILY [facility] Last Admin: 01/16/19 08:10 Dose: 700 mg Lorazepam (Ativan) 0.5 mg PO Q8H PRN PRN Reason: Agitation Last Admin: 01/15/19 13:46 Dose: 0.5 mg Lorazepam (Ativan) 1 mg PO BEDTIME [facility] Last Admin: 01/15/19 19:16 Dose: 1 mg Melatonin (Melatonin) 6 mg PO QPM [facility] Last Admin: 01/15/19 19:17 Dose: 6 mg Methocarbamol (Robaxin) 750 mg PO BID PRN PRN Reason: Muscle Spasm Miscellaneous Information (Remove Patch) 1 ea TRDERM DAILY@1999 [facility] Last Admin: 01/15/19 19:19 Dose: 1 ea Multivitamins/Minerals (Thera M Plus) 1 tab PO DAILY@1130 [facility] Last Admin: 01/15/19 12:15 Dose: 1 tab Ondansetron HCl (Zofran Odt) 4 mg PO Q6H PRN PRN Reason: Nausea/Vomiting Last Admin: 01/01/19 09:15 Dose: 4 mg Pantoprazole Sodium (Protonix) 40 mg PO QPM [facility] Last Admin: 01/15/19 19:18 Dose: 40 mg Polyethylene Glycol (Miralax) 17 gm PO DAILY [facility] Last Admin: 01/16/19 08:10 Dose: 17 gm Senna/Docusate Sodium (Senna Plus) 1 tab PO DAILY [facility] Last Admin: 01/16/19 08:09 Dose: 1 tab Discontinued Medications Artificial Tears (Refresh Liquigel 1%) 0 ml EYEBOTH QPM [facility] Last Admin: 12/16/18 20:37 Dose: 2 drop Ciprofloxacin (Ciprofloxacin Hcl) 500 mg PO BID [facility] Stop: 12/31/18 08:00 Last Admin: 12/31/18 07:50 Dose: 500 mg Cyclobenzaprine HCl (Flexeril) 10 mg PO ONETIME ONE Stop: 01/02/19 10:56 Last Admin: 01/02/19 12:02 Dose: 10 mg Cyclobenzaprine HCl (Flexeril) 10 mg PO TID PRN PRN Reason: Other Last Admin: 01/08/19 09:12 Dose: 10 mg Cyclobenzaprine HCl (Flexeril) 10 mg PO BEDTIME PRN PRN Reason: Other Last Admin: 01/13/19 19:38 Dose: 10 mg Cyclobenzaprine HCl (Flexeril) 10 mg PO BID PRN PRN Reason: Other Cyclobenzaprine HCl (Flexeril) Confirm Administered Dose 10 mg .ROUTE .STK-MED ONE Stop: 01/15/19 10:40 Last Admin: 01/15/19 10:45 Dose: 10 mg Ketorolac Tromethamine (Toradol) Confirm Administered Dose 10 mg .ROUTE .STK- MED ONE Stop: 12/27/18 17:15 Last Admin: 12/27/18 17:42 Dose: 10 mg Ketorolac Tromethamine (Toradol) 10 mg PO ONETIME ONE Stop: 12/27/18 17:41 Last Admin: 12/27/18 19:00 Dose: Not Given Ketorolac Tromethamine (Toradol) 30 mg IM ONETIME ONE Stop: 12/27/18 19:01 Last Admin: 12/27/18 18:30 Dose: 30 mg Lorazepam (Ativan) Confirm Administered Dose 1 mg .ROUTE .STK-MED ONE Stop: 12/30/18 19:55 Last Admin: 12/30/18 20:00 Dose: Not Given Lorazepam (Ativan) Confirm Administered Dose 2 mg .ROUTE .STK-MED ONE Stop: 01/12/19 02:25 Last Admin: 01/12/19 02:36 Dose: 0.5 mg Lorazepam (Ativan) 0.5 mg IM ONETIME ONE Stop: 01/12/19 02:59 Last Admin: 01/12/19 08:48 Dose: Not Given Miscellaneous Information (Remove Patch) 1 ea TRDERM DAILY [facility] Last Admin: 12/18/18 10:43 Dose: Not Given Multivitamins/Minerals (Thera M Plus) 1 tab PO DAILY [facility] Last Admin: 12/26/18 08:03 Dose: 1 tab Tramadol HCl (Ultram) 50 mg PO Q8H PRN PRN Reason: Pain Tuberculin PPD (Aplisol) 5 unit IDERM ONETIME ONE Stop: 12/16/18 16:01 Last Admin: 12/16/18 16:30 Dose: 5 unit Tuberculin PPD (Aplisol) 5 unit IDERM ONETIME ONE Stop: 12/30/18 16:31 Last Admin: 12/30/18 16:08 Dose: 5 unit - Exam General: Alert, Cooperative, No Acute Distress HEENT: Pupils Equal, Pupils Reactive, EOMI Neck: Supple Lungs: Clear to Auscultation, Normal Respiratory Effort Cardiovascular: Regular Rate, Regular Rhythm GI/Abdominal Exam: Normal Bowel Sounds Back Exam: Normal Inspection Extremities: Normal Inspection Peripheral Pulses: 2+: Dorsalis Pedis (L), Dorsalis Pedis (R) Skin: Warm, Dry, Intact - Problem List & Annotations (1) Fracture of cervical spine without spinal cord lesion SNOMED Code(s): 209981254 Code(s): S12.9XXA - FRACTURE OF NECK, UNSPECIFIED, INITIAL ENCOUNTER Status : Acute Priority: High Current Visit: Yes Qualifiers: Encounter type: subsequent encounter Qualified Code(s): S12.9XXD - Fracture of neck, unspecified, subsequent encounter (2) Multiple facial bone fractures SNOMED Code(s): 684400645 Code(s): S02.92XA - UNSP FRACTURE OF FACIAL BONES, INIT FOR CLOS FX Status : Acute Priority: High Current Visit: Yes (3) Traumatic ecchymosis of forehead SNOMED Code(s): 211885757 Code(s): S00.83XA - CONTUSION OF OTHER PART OF HEAD, INITIAL ENCOUNTER Status: Acute Priority: High Current Visit: Yes - Problem List Review Problem List Initiated/Reviewed/Updated: Yes - My Orders Last 24 Hours: My Active Orders 01/15/19 09:07 Cervical Spine 2V or 3V [CR] Routine 01/15/19 10:32 Acetaminophen/HYDROcodone [Hankamer 325-10 MG] 1 tab PO TID PRN 01/15/19 11:40 Methocarbamol [Robaxin] 750 mg PO BID PRN - Assessment Assessment:: 01-13-19 C1 comminuted fracture in C-collar Multiple recent facial fractures UTI Patient remains unchanged, wearing cervical collar or soft collar. Appetite good , needs assistance with feeding. Occasional coughing when drinking fluids. Denies pain. Some increase in confusion. UTI recurrence. - Plan Plan:: Patient admitted to swing bed for physical and occupational therapy and strengthening. We will continue to closely monitor C1-C2 management. Continue pain management. 01/01/19 Patient has improved function and strength. She has sundowning and has to be redirected often during the evening. She is eating well and does appear to be doing well. She has no concerns and will continue with current rehabilitation and management. 01/06/19 Continues to do well. Will continue with current rehabilitation and management. Consider move to [facility] facility for continued OT/PT. 01-13-19 Continue with therapy for strengthening. Will treat UTI with Cipro bid. 01/16/19 Patient currently being treated for UTI on Cipro 500mg BID for a total of 5 days ending today. Pending cultures - will review. Continue rehabilitation and management as patient continues to have fluctuating neck pain. We will monitor pain and treat as needed with hydrocodone 5-325mg and monitor for sedation and constipation per shift and after administration of pain meds q2hrs prn. Patient will have difficulty taking care of self due to Progressive Supranuclear palsy. We will monitor Sinemet use to see if this does indeed improve any of her symptoms. Patient is definitely unsafe to be at home alone. Signed out to Bryn for the weekend.
[2019-01-16] MEDS: Acetaminophen/HYDROcodone 325-10 MG Tab PO PRN (10:46)
[2019-01-16] MEDS: Multivitamins with Iron/Calcium/Folic Acid/Minerals Tab PO SCH (12:00)
[2019-01-16] MEDS ORDERED: Methocarbamol 500 MG Tab ONE (19:55)
[2019-01-16] MEDS: Melatonin 3 MG Tab PO SCH (19:58)
[2019-01-16] MEDS: LORazepam 1 MG Tab PO SCH (19:58)
[2019-01-16] MEDS: Methocarbamol 750 MG Tab PO PRN (19:58)
[2019-01-16] MEDS: Pantoprazole 40 MG Tab.CR PO SCH (19:59)
[2019-01-16] MEDS: Ibuprofen 600 MG Tab PO PRN (19:59)
--- NOTE | 2019-01-16 21:23 | CR ---
CLINICAL DATA: For Neurosurgery follow up. CERVICAL SPINE, 15 JANUARY 2019: There is diffuse osteopenia. Comparison made to a prior cervical spine CT dated 24 December 2018. There is a lucency through the anterior arch of C1, consistent with the known fracture. The odontoid process of C2 also has a somewhat fragmented appearance. There is slight anterolisthesis of C4 on C5. There is degenerative disc disease at multiple levels with disc space narrowing at multiple levels. There is facet joint hypertrophy throughout the cervical spine. No other significant findings. Job: [id number] [facility]
[2019-01-16] MEDS ORDERED: LORazepam 2 MG/ML SDV ONE (22:38)
[2019-01-17] MEDS ORDERED: LORazepam 2 MG/ML SDV IM ONE
[2019-01-17] MEDS: Polyethylene Glycol 3350 Powder 17 GM Packet PO SCH (08:35)
[2019-01-17] MEDS: Polyvinyl Alcohol 1.4% Ophth Soln 15 ML Bottle EYEBOTH SCH ×4 (08:36→22:45)
[2019-01-17] MEDS: Acetaminophen 325 MG Tab PO SCH ×4 (08:36→20:39)
[2019-01-17] MEDS: DULoxetine 60 MG Cap PO SCH (08:36)
[2019-01-17] MEDS: Carbidopa/Levodopa 25-100 MG Tab PO SCH ×5 (08:36→22:48)
[2019-01-17] MEDS: Lidocaine 5% 700 MG Patch TRDERM SCH (08:37)
[2019-01-17] MEDS: Multivitamins with Iron/Calcium/Folic Acid/Minerals Tab PO SCH (12:03)
[2019-01-17] MEDS: Acetaminophen/HYDROcodone 325-10 MG Tab PO PRN (14:13)
[2019-01-17] MEDS: LORazepam 0.5 MG Tab PO PRN ×2 (15:25→17:24)
[2019-01-17] MEDS: Pantoprazole 40 MG Tab.CR PO SCH ×2 (20:00→20:40)
[2019-01-17] MEDS: Melatonin 3 MG Tab PO SCH ×2 (20:00→20:40)
[2019-01-17] MEDS: LORazepam 1 MG Tab PO SCH (22:46)
[2019-01-18] MEDS ORDERED: Methocarbamol 500 MG Tab ONE ×2 (07:51→20:59)
[2019-01-18] MEDS: Carbidopa/Levodopa 25-100 MG Tab PO SCH ×5 (08:55→20:57)
[2019-01-18] MEDS: DULoxetine 60 MG Cap PO SCH (08:55)
[2019-01-18] MEDS: Polyethylene Glycol 3350 Powder 17 GM Packet PO SCH (08:55)
[2019-01-18] MEDS: Acetaminophen 325 MG Tab PO SCH ×4 (08:55→20:50)
[2019-01-18] MEDS: Methocarbamol 750 MG Tab PO PRN ×2 (09:00→21:00)
[2019-01-18] MEDS: Polyvinyl Alcohol 1.4% Ophth Soln 15 ML Bottle EYEBOTH SCH ×4 (09:00→20:52)
[2019-01-18] MEDS: Lidocaine 5% 700 MG Patch TRDERM SCH (09:15)
[2019-01-18] MEDS: Multivitamins with Iron/Calcium/Folic Acid/Minerals Tab PO SCH (11:55)
[2019-01-18] MEDS: Acetaminophen/HYDROcodone 325-10 MG Tab PO PRN ×2 (12:00→17:52)
[2019-01-18] MEDS: LORazepam 1 MG Tab PO PRN (14:45)
[2019-01-18] MEDS: Ibuprofen 600 MG Tab PO PRN ×2 (14:45→20:55)
[2019-01-18] MEDS: Melatonin 3 MG Tab PO SCH (20:50)
[2019-01-18] MEDS: LORazepam 1 MG Tab PO SCH (20:53)
[2019-01-18] MEDS: Pantoprazole 40 MG Tab.CR PO SCH (20:54)
[2019-01-19] MEDS: LORazepam 1 MG Tab PO PRN (02:47)
[2019-01-19] MEDS: Acetaminophen/HYDROcodone 325-10 MG Tab PO PRN ×3 (02:48→21:49)
[2019-01-19] MEDS: Amoxicillin/Clavulanate K 875-125 MG Tab PO SCH ×2 (09:48→16:16)
[2019-01-19] MEDS: Carbidopa/Levodopa 25-100 MG Tab PO SCH ×4 (09:49→19:50)
[2019-01-19] MEDS: DULoxetine 60 MG Cap PO SCH (09:49)
[2019-01-19] MEDS: Polyvinyl Alcohol 1.4% Ophth Soln 15 ML Bottle EYEBOTH SCH ×4 (09:49→20:00)
[2019-01-19] MEDS: Acetaminophen 325 MG Tab PO SCH ×4 (09:50→19:50)
[2019-01-19] MEDS: Polyethylene Glycol 3350 Powder 17 GM Packet PO SCH (09:50)
[2019-01-19] MEDS: Lidocaine 5% 700 MG Patch TRDERM SCH (09:50)
[2019-01-19] MEDS: Multivitamins with Iron/Calcium/Folic Acid/Minerals Tab PO SCH (13:08)
--- NOTE | 2019-01-19 17:05 | PCM.PN ---
- General Info Date of Service: 01/19/19 Subjective Update: Patient continues to have neck tenderness. She denies other issues today and overall had a good weekend. Patient has a good appetite but does require assistance with feeding. Patient denies other concerns today. Functional Status: Reports: Tolerating Diet - Review of Systems General: Reports: No Symptoms HEENT: Reports: Other (neck pain left side) Pulmonary: Reports: No Symptoms Cardiovascular: Reports: No Symptoms Gastrointestinal: Reports: No Symptoms Genitourinary: Reports: No Symptoms Musculoskeletal: Reports: Neck Pain Skin: Reports: No Symptoms Neurological: Reports: Other (progressive supra nuclear palsy) Psychiatric: Reports: Agitation - Patient Data Vitals - Most Recent: Last Vital Signs Temp 36.4 C 01/19/19 10:00 Pulse 87 01/19/19 10:00 Resp 18 01/19/19 10:00 BP 116/69 01/19/19 10:00 Pulse Ox 96 01/19/19 10:00 Weight - Most Recent: 53.297 kg I&O - Last 24 Hours: Intake & Output 01/19/19 01/19/19 01/19/19 06:59 14:59 22:59 Intake Total 210 Balance 210 Alejandro Results Last 24 Hours: Microbiology 01/14/19 20:24 Urine Culture - Final Urine, Bladder Enterococcus Faecalis Med Orders - Current: Current Medications Acetaminophen (Tylenol) 650 mg PO QID [facility] Last Admin: 01/19/19 16:23 Dose: Not Given Hydrocodone Bitart/Acetaminophen ([place] 325-10 Mg) 1 tab PO TID PRN PRN Reason: Pain Last Admin: 01/19/19 16:16 Dose: 1 tab Amoxicillin/Clavulanate Potassium (Augmentin 875 Mg/125 Mg) 1 tab PO BIDMEALS [facility] Stop: 01/25/19 23:59 Last Admin: 01/19/19 16:16 Dose: 1 tab Artificial Tears (Liquitears 1.4% Ophth Soln) 1 - 2 ml EYEBOTH QID [facility] Last Admin: 01/19/19 16:27 Dose: 1 drop Carbidopa/Levodopa (Sinemet 25-100 Mg) 1 tab PO QID [facility] Last Admin: 01/19/19 16:27 Dose: 1 tab Duloxetine HCl (Cymbalta) 60 mg PO DAILY [facility] Last Admin: 01/19/19 09:49 Dose: 60 mg Ibuprofen (Motrin) 600 mg PO Q6H PRN PRN Reason: Pain Last Admin: 01/18/19 20:55 Dose: 600 mg Lactobacillus Acidophilus (Acidolphilus Extra Strength) 1 tab PO DAILY@1999 [facility] Lidocaine (Lidoderm 5%) 700 mg TRDERM DAILY [facility] Last Admin: 01/19/19 09:50 Dose: 700 mg Lorazepam (Ativan) 1 mg PO BEDTIME [facility] Last Admin: 01/18/19 20:53 Dose: 1 mg Lorazepam (Ativan) 1 mg PO Q6H PRN PRN Reason: Anxiety Last Admin: 01/19/19 02:47 Dose: 1 mg Melatonin (Melatonin) 6 mg PO QPM [facility] Last Admin: 01/18/19 20:50 Dose: 6 mg Methocarbamol (Robaxin) 750 mg PO BID PRN PRN Reason: Muscle Spasm Last Admin: 01/18/19 21:00 Dose: 750 mg Miscellaneous Information (Remove Patch) 1 ea TRDERM DAILY@1999 [facility] Last Admin: 01/18/19 20:57 Dose: 1 ea Multivitamins/Minerals (Thera M Plus) 1 tab PO DAILY@1130 [facility] Last Admin: 01/19/19 13:08 Dose: 1 tab Ondansetron HCl (Zofran Odt) 4 mg PO Q6H PRN PRN Reason: Nausea/Vomiting Last Admin: 01/01/19 09:15 Dose: 4 mg Pantoprazole Sodium (Protonix) 40 mg PO QPM [facility] Last Admin: 01/18/19 20:54 Dose: 40 mg Polyethylene Glycol (Miralax) 17 gm PO DAILY [facility] Last Admin: 01/19/19 09:50 Dose: 17 gm Senna/Docusate Sodium (Senna Plus) 1 tab PO DAILY [facility] Last Admin: 01/19/19 09:49 Dose: 1 tab Discontinued Medications Artificial Tears (Refresh Liquigel 1%) 0 ml EYEBOTH QPM [facility] Last Admin: 12/16/18 20:37 Dose: 2 drop Carbidopa/Levodopa (Sinemet 25-100 Mg) 1 tab PO TID [facility] Last Admin: 01/18/19 08:55 Dose: Not Given Ciprofloxacin (Ciprofloxacin Hcl) 500 mg PO BID [facility] Stop: 12/31/18 08:00 Last Admin: 12/31/18 07:50 Dose: 500 mg Ciprofloxacin (Ciprofloxacin Hcl) 500 mg PO BID [facility] Stop: 01/16/19 23:59 Last Admin: 01/16/19 19:59 Dose: 500 mg Cyclobenzaprine HCl (Flexeril) 10 mg PO ONETIME ONE Stop: 01/02/19 10:56 Last Admin: 01/02/19 12:02 Dose: 10 mg Cyclobenzaprine HCl (Flexeril) 10 mg PO TID PRN PRN Reason: Other Last Admin: 01/08/19 09:12 Dose: 10 mg Cyclobenzaprine HCl (Flexeril) 10 mg PO BEDTIME PRN PRN Reason: Other Last Admin: 01/13/19 19:38 Dose: 10 mg Cyclobenzaprine HCl (Flexeril) 10 mg PO BID PRN PRN Reason: Other Cyclobenzaprine HCl (Flexeril) Confirm Administered Dose 10 mg .ROUTE .STK-MED ONE Stop: 01/15/19 10:40 Last Admin: 01/15/19 10:45 Dose: 10 mg Ketorolac Tromethamine (Toradol) Confirm Administered Dose 10 mg .ROUTE .STK- MED ONE Stop: 12/27/18 17:15 Last Admin: 12/27/18 17:42 Dose: 10 mg Ketorolac Tromethamine (Toradol) 10 mg PO ONETIME ONE Stop: 12/27/18 17:41 Last Admin: 12/27/18 19:00 Dose: Not Given Ketorolac Tromethamine (Toradol) 30 mg IM ONETIME ONE Stop: 12/27/18 19:01 Last Admin: 12/27/18 18:30 Dose: 30 mg Lorazepam (Ativan) 0.5 mg PO Q8H PRN PRN Reason: Agitation Last Admin: 01/17/19 17:24 Dose: 0.5 mg Lorazepam (Ativan) Confirm Administered Dose 1 mg .ROUTE .STK-MED ONE Stop: 12/30/18 19:55 Last Admin: 12/30/18 20:00 Dose: Not Given Lorazepam (Ativan) Confirm Administered Dose 2 mg .ROUTE .STK-MED ONE Stop: 01/12/19 02:25 Last Admin: 01/12/19 02:36 Dose: 0.5 mg Lorazepam (Ativan) 0.5 mg IM ONETIME ONE Stop: 01/12/19 02:59 Last Admin: 01/12/19 08:48 Dose: Not Given Lorazepam (Ativan) Confirm Administered Dose 2 mg .ROUTE .STK-MED ONE Stop: 01/16/19 22:39 Last Admin: 01/16/19 23:56 Dose: 0.5 mg Lorazepam (Ativan) 0.5 mg IM ONETIME ONE Stop: 01/17/19 00:01 Last Admin: 01/17/19 06:22 Dose: Not Given Methocarbamol (Robaxin) Confirm Administered Dose 1,000 mg .ROUTE .STK-MED ONE Stop: 01/16/19 19:56 Last Admin: 01/16/19 20:05 Dose: Not Given Methocarbamol (Robaxin) Confirm Administered Dose 500 mg .ROUTE .STK-MED ONE Stop: 01/18/19 07:52 Last Admin: 01/18/19 09:00 Dose: Not Given Methocarbamol (Robaxin) Confirm Administered Dose 500 mg .ROUTE .STK-MED ONE Stop: 01/18/19 21:00 Last Admin: 01/19/19 02:55 Dose: Not Given Miscellaneous Information (Remove Patch) 1 ea TRDERM DAILY [facility] Last Admin: 12/18/18 10:43 Dose: Not Given Multivitamins/Minerals (Thera M Plus) 1 tab PO DAILY [facility] Last Admin: 12/26/18 08:03 Dose: 1 tab Tramadol HCl (Ultram) 50 mg PO Q8H PRN PRN Reason: Pain Tuberculin PPD (Aplisol) 5 unit IDERM ONETIME ONE Stop: 12/16/18 16:01 Last Admin: 12/16/18 16:30 Dose: 5 unit Tuberculin PPD (Aplisol) 5 unit IDERM ONETIME ONE Stop: 12/30/18 16:31 Last Admin: 12/30/18 16:08 Dose: 5 unit - Exam General: Alert, Oriented, Cooperative HEENT: Pupils Equal, Pupils Reactive, EOMI, Mucous Membr. Moist/[place]: Supple Lungs: Clear to Auscultation, Normal Respiratory Effort Cardiovascular: Regular Rate, Regular Rhythm GI/Abdominal Exam: Normal Bowel Sounds Back Exam: Normal Inspection Extremities: Normal Inspection Peripheral Pulses: 2+: Dorsalis Pedis (L), Dorsalis Pedis (R) Skin: Warm, Dry, Intact Neurological: No New Focal Deficit - Problem List & Annotations (1) Fracture of cervical spine without spinal cord lesion SNOMED Code(s): 649107256 Code(s): S12.9XXA - FRACTURE OF NECK, UNSPECIFIED, INITIAL ENCOUNTER Status : Acute Priority: High Current Visit: Yes Qualifiers: Encounter type: subsequent encounter Qualified Code(s): S12.9XXD - Fracture of neck, unspecified, subsequent encounter (2) Multiple facial bone fractures SNOMED Code(s): 919036497 Code(s): S02.92XA - UNSP FRACTURE OF FACIAL BONES, INIT FOR CLOS FX Status : Acute Priority: High Current Visit: Yes (3) Traumatic ecchymosis of forehead SNOMED Code(s): 319007533 Code(s): S00.83XA - CONTUSION OF OTHER PART OF HEAD, INITIAL ENCOUNTER Status: Acute Priority: High Current Visit: Yes - Problem List Review Problem List Initiated/Reviewed/Updated: Yes - My Orders Last 24 Hours: My Active Orders 01/19/19 09:15 Amoxicillin/Clavulanate K [Augmentin 875 MG/125 MG] 1 tab PO BIDMEALS 01/19/19 20:00 Acidophilus/Lactobac Spor [Acidolphilus Extra Strength] 1 tab PO DAILY@1999 - Assessment Assessment:: 01-13-19 C1 comminuted fracture in C-collar Multiple recent facial fractures UTI Patient remains unchanged, wearing cervical collar or soft collar. Appetite good , needs assistance with feeding. Occasional coughing when drinking fluids. Denies pain. Some increase in confusion. UTI recurrence. - Plan Plan:: Patient admitted to swing bed for physical and occupational therapy and strengthening. We will continue to closely monitor C1-C2 management. Continue pain management. 01/01/19 Patient has improved function and strength. She has sundowning and has to be redirected often during the evening. She is eating well and does appear to be doing well. She has no concerns and will continue with current rehabilitation and management. 01/06/19 Continues to do well. Will continue with current rehabilitation and management. [facility]/PT. 01-13-19 Continue with therapy for strengthening. Will treat UTI with Cipro bid. 01/16/19 Patient currently being treated for UTI on Cipro 500mg BID for a total of 5 days ending today. Pending cultures - will review. Continue rehabilitation and management as patient continues to have fluctuating neck pain. We will monitor pain and treat as needed with hydrocodone 5-325mg and monitor for sedation and constipation per shift and after administration of pain meds q2hrs prn. Patient will have difficulty taking care of self due to Progressive Supranuclear palsy. We will monitor Sinemet use to see if this does indeed improve any of her symptoms. Patient is definitely unsafe to be at home alone. Signed out to [facility] for the weekend. 01/19/19 Controlled neck pain at this time. Patient does get agitated at night and we will continue redirection and one-on-one standby for assistance. Continue close observation and having patient sitting next to staff for company. This has helped and we will continue close monitoring and assist. Continue current staff assisted feeding. Patient is unsafe for home and does have fluctuating cognition and agitation. We will continue current cares and plan of action.
[2019-01-19] MEDS: LORazepam 1 MG Tab PO SCH (19:50)
[2019-01-19] MEDS: Lactobacillus Acidophilus/Lactobacillus Sporogenes (Probiotic) Tab PO SCH (19:50)
[2019-01-19] MEDS: Melatonin 3 MG Tab PO SCH (19:50)
[2019-01-19] MEDS: Pantoprazole 40 MG Tab.CR PO SCH (19:50)
[2019-01-19] MEDS ORDERED: Methocarbamol 500 MG Tab ONE (21:37)
[2019-01-19] MEDS: Methocarbamol 750 MG Tab PO PRN (21:51)
[2019-01-20] MEDS: LORazepam 1 MG Tab PO PRN ×2 (03:35→13:33)
[2019-01-20] MEDS: Acetaminophen/HYDROcodone 325-10 MG Tab PO PRN (03:35)
[2019-01-20] MEDS ORDERED: LORazepam 2 MG/ML SDV IM ONE ×2 (03:45→19:55)
[2019-01-20] MEDS: Polyethylene Glycol 3350 Powder 17 GM Packet PO SCH (08:22)
[2019-01-20] MEDS: Carbidopa/Levodopa 25-100 MG Tab PO SCH ×4 (08:23→21:42)
[2019-01-20] MEDS: Lidocaine 5% 700 MG Patch TRDERM SCH (08:23)
[2019-01-20] MEDS: Amoxicillin/Clavulanate K 875-125 MG Tab PO SCH ×2 (08:23→16:44)
[2019-01-20] MEDS: DULoxetine 60 MG Cap PO SCH (08:24)
[2019-01-20] MEDS: Acetaminophen 325 MG Tab PO SCH ×4 (08:24→21:42)
[2019-01-20] MEDS: Polyvinyl Alcohol 1.4% Ophth Soln 15 ML Bottle EYEBOTH SCH ×4 (08:24→21:41)
[2019-01-20] MEDS: Multivitamins with Iron/Calcium/Folic Acid/Minerals Tab PO SCH (11:50)
[2019-01-20] MEDS ORDERED: Haloperidol Lactate 5 MG/ML SDV IM ONE (19:55)
[2019-01-20] MEDS ORDERED: diphenhydrAMINE 50 MG/ML SDV IM ONE (19:55)
[2019-01-20] MEDS: Melatonin 3 MG Tab PO SCH (21:41)
[2019-01-20] MEDS: Lactobacillus Acidophilus/Lactobacillus Sporogenes (Probiotic) Tab PO SCH (21:41)
[2019-01-20] MEDS: LORazepam 1 MG Tab PO SCH (21:41)
[2019-01-20] MEDS: Pantoprazole 40 MG Tab.CR PO SCH (21:42)
[2019-01-21] MEDS: Lidocaine 5% 700 MG Patch TRDERM SCH (11:22)
[2019-01-21] MEDS: DULoxetine 60 MG Cap PO SCH (11:22)
[2019-01-21] MEDS: Polyvinyl Alcohol 1.4% Ophth Soln 15 ML Bottle EYEBOTH SCH ×4 (11:23→20:32)
[2019-01-21] MEDS: Polyethylene Glycol 3350 Powder 17 GM Packet PO SCH (11:23)
[2019-01-21] MEDS: Acetaminophen 325 MG Tab PO SCH ×4 (11:25→20:27)
[2019-01-21] MEDS: Carbidopa/Levodopa 25-100 MG Tab PO SCH ×4 (11:25→20:30)
[2019-01-21] MEDS: Amoxicillin/Clavulanate K 875-125 MG Tab PO SCH ×2 (12:59→20:30)
[2019-01-21] MEDS: Ibuprofen 600 MG Tab PO PRN (13:00)
[2019-01-21] MEDS: Multivitamins with Iron/Calcium/Folic Acid/Minerals Tab PO SCH (13:00)
[2019-01-21] MEDS: Acetaminophen/HYDROcodone 325-10 MG Tab PO PRN ×2 (15:40→20:31)
[2019-01-21] MEDS: Methocarbamol 750 MG Tab PO PRN ×2 (16:33→20:31)
[2019-01-21] MEDS: Melatonin 3 MG Tab PO SCH (20:29)
[2019-01-21] MEDS: Lactobacillus Acidophilus/Lactobacillus Sporogenes (Probiotic) Tab PO SCH (20:31)
[2019-01-21] MEDS: LORazepam 1 MG Tab PO SCH (20:31)
[2019-01-21] MEDS: Pantoprazole 40 MG Tab.CR PO SCH (20:32)
[2019-01-22] MEDS: Acetaminophen 325 MG Tab PO SCH ×4 (09:05→19:43)
[2019-01-22] MEDS: DULoxetine 60 MG Cap PO SCH (09:07)
[2019-01-22] MEDS: Acetaminophen/HYDROcodone 325-10 MG Tab PO PRN ×2 (09:08→15:57)
[2019-01-22] MEDS: Carbidopa/Levodopa 25-100 MG Tab PO SCH ×4 (09:08→19:45)
[2019-01-22] MEDS: Lidocaine 5% 700 MG Patch TRDERM SCH (09:09)
[2019-01-22] MEDS: Amoxicillin/Clavulanate K 875-125 MG Tab PO SCH ×2 (09:09→17:38)
[2019-01-22] MEDS: LORazepam 1 MG Tab PO PRN (09:09)
[2019-01-22] MEDS: Polyvinyl Alcohol 1.4% Ophth Soln 15 ML Bottle EYEBOTH SCH ×4 (09:10→20:10)
[2019-01-22] MEDS: Polyethylene Glycol 3350 Powder 17 GM Packet PO SCH (09:10)
[2019-01-22] MEDS: Multivitamins with Iron/Calcium/Folic Acid/Minerals Tab PO SCH (12:04)
[2019-01-22] MEDS: Methocarbamol 750 MG Tab PO PRN (15:04)
[2019-01-22] MEDS: Ibuprofen 600 MG Tab PO PRN (17:37)
[2019-01-22] MEDS: Lactobacillus Acidophilus/Lactobacillus Sporogenes (Probiotic) Tab PO SCH (19:44)
[2019-01-22] MEDS: LORazepam 1 MG Tab PO SCH (19:44)
[2019-01-22] MEDS: Melatonin 3 MG Tab PO SCH (19:44)
[2019-01-22] MEDS: Pantoprazole 40 MG Tab.CR PO SCH (19:44)
[2019-01-23] MEDS: Acetaminophen 325 MG Tab PO SCH ×4 (07:32→20:17)
[2019-01-23] MEDS: Polyethylene Glycol 3350 Powder 17 GM Packet PO SCH (07:32)
[2019-01-23] MEDS: DULoxetine 60 MG Cap PO SCH (07:32)
[2019-01-23] MEDS: Amoxicillin/Clavulanate K 875-125 MG Tab PO SCH ×2 (07:33→17:56)
[2019-01-23] MEDS: Lidocaine 5% 700 MG Patch TRDERM SCH (07:50)
[2019-01-23] MEDS: Carbidopa/Levodopa 25-100 MG Tab PO SCH ×4 (07:51→20:22)
[2019-01-23] MEDS: Polyvinyl Alcohol 1.4% Ophth Soln 15 ML Bottle EYEBOTH SCH ×4 (07:51→20:20)
[2019-01-23] MEDS: Methocarbamol 750 MG Tab PO PRN ×2 (09:56→20:21)
[2019-01-23] MEDS: Ibuprofen 600 MG Tab PO PRN (09:56)
[2019-01-23] MEDS: Multivitamins with Iron/Calcium/Folic Acid/Minerals Tab PO SCH (12:03)
[2019-01-23] MEDS: Acetaminophen/HYDROcodone 325-10 MG Tab PO PRN (14:07)
[2019-01-23] MEDS: Pantoprazole 40 MG Tab.CR PO SCH (20:20)
[2019-01-23] MEDS: LORazepam 1 MG Tab PO SCH (20:21)
[2019-01-23] MEDS: Melatonin 3 MG Tab PO SCH (20:22)
[2019-01-23] MEDS: Lactobacillus Acidophilus/Lactobacillus Sporogenes (Probiotic) Tab PO SCH (20:22)
[2019-01-24] MEDS: Acetaminophen 325 MG Tab PO SCH ×4 (08:04→19:42)
[2019-01-24] MEDS: Amoxicillin/Clavulanate K 875-125 MG Tab PO SCH ×2 (08:06→16:34)
[2019-01-24] MEDS: DULoxetine 60 MG Cap PO SCH (08:07)
[2019-01-24] MEDS: Lidocaine 5% 700 MG Patch TRDERM SCH (08:08)
[2019-01-24] MEDS: Polyethylene Glycol 3350 Powder 17 GM Packet PO SCH (08:11)
[2019-01-24] MEDS: Polyvinyl Alcohol 1.4% Ophth Soln 15 ML Bottle EYEBOTH SCH ×4 (08:11→19:41)
[2019-01-24] MEDS: Carbidopa/Levodopa 25-100 MG Tab PO SCH ×4 (08:12→19:41)
[2019-01-24] MEDS: Ibuprofen 600 MG Tab PO PRN ×2 (08:12→19:43)
[2019-01-24] MEDS: Multivitamins with Iron/Calcium/Folic Acid/Minerals Tab PO SCH (12:15)
[2019-01-24] MEDS: Methocarbamol 750 MG Tab PO PRN ×2 (12:15→19:42)
--- NOTE | 2019-01-24 17:28 | PCM.SN ---
- Free Text/Narrative Note: Patient was found on the ground beside her recliner. It appears the patient got up and rolled to the right side and fell down beside her recliner. Patient was found alert and denied any injury or pain. I was notified and i came to the hospital to assess her. Patient alert and states she is in no pain and denies any injuries. Patient examined and does have a small 2x3cm abrasion and bruise of the right forehead. Examined right shoulder and did note a protruding clavicle bone from a prior clavicle injury as the bone is fused and non-tender to manipulation or touch. Patient has good ROM of right arm without pain on movement. Discussed plan of care with staff and continuing preventive measures as patient is a fall risks as was assessed in the past. Chair checked and no mechanical issues noted. We will move the chair to a better position to support the patient if she were to get up again. Staff will continue checks and maintain a visual while she is near the nursing station.
[2019-01-24] MEDS: Acetaminophen/HYDROcodone 325-10 MG Tab PO PRN (17:31)
[2019-01-24] MEDS: Lactobacillus Acidophilus/Lactobacillus Sporogenes (Probiotic) Tab PO SCH (19:43)
[2019-01-24] MEDS: LORazepam 1 MG Tab PO SCH (19:43)
[2019-01-24] MEDS: Melatonin 3 MG Tab PO SCH (19:44)
[2019-01-24] MEDS: Pantoprazole 40 MG Tab.CR PO SCH (19:44)
[2019-01-25] MEDS: Lidocaine 5% 700 MG Patch TRDERM SCH ×2 (08:26→08:30)
[2019-01-25] MEDS: DULoxetine 60 MG Cap PO SCH (08:29)
[2019-01-25] MEDS: Polyvinyl Alcohol 1.4% Ophth Soln 15 ML Bottle EYEBOTH SCH ×3 (08:30→17:07)
[2019-01-25] MEDS: Polyethylene Glycol 3350 Powder 17 GM Packet PO SCH (08:35)
[2019-01-25] MEDS: Carbidopa/Levodopa 25-100 MG Tab PO SCH ×4 (08:36→19:36)
[2019-01-25] MEDS: Acetaminophen 325 MG Tab PO SCH ×4 (08:36→19:36)
[2019-01-25] MEDS: Amoxicillin/Clavulanate K 875-125 MG Tab PO SCH ×2 (08:38→17:07)
[2019-01-25] MEDS: Multivitamins with Iron/Calcium/Folic Acid/Minerals Tab PO SCH (11:50)
[2019-01-25] MEDS: LORazepam 1 MG Tab PO PRN (13:39)
[2019-01-25] MEDS: Ibuprofen 600 MG Tab PO PRN (19:35)
[2019-01-25] MEDS: LORazepam 1 MG Tab PO SCH (19:36)
[2019-01-25] MEDS: Melatonin 3 MG Tab PO SCH (19:36)
[2019-01-25] MEDS: Pantoprazole 40 MG Tab.CR PO SCH (19:36)
[2019-01-25] MEDS: Lactobacillus Acidophilus/Lactobacillus Sporogenes (Probiotic) Tab PO SCH (19:36)
[2019-01-25] MEDS: Methocarbamol 750 MG Tab PO PRN (19:39)
[2019-01-26] MEDS: Polyvinyl Alcohol 1.4% Ophth Soln 15 ML Bottle EYEBOTH SCH ×5 (07:10→20:58)
[2019-01-26] MEDS: DULoxetine 60 MG Cap PO SCH (08:16)
[2019-01-26] MEDS: Lidocaine 5% 700 MG Patch TRDERM SCH (08:17)
[2019-01-26] MEDS: Acetaminophen 325 MG Tab PO SCH ×4 (08:17→20:54)
[2019-01-26] MEDS: Carbidopa/Levodopa 25-100 MG Tab PO SCH ×4 (08:19→20:55)
[2019-01-26] MEDS: Polyethylene Glycol 3350 Powder 17 GM Packet PO SCH (08:19)
[2019-01-26] MEDS: Multivitamins with Iron/Calcium/Folic Acid/Minerals Tab PO SCH (11:03)
--- NOTE | 2019-01-26 14:39 | PCM.PN ---
- General Info Date of Service: 01/26/19 Subjective Update: Patient is stable with no concerns at this time. Pain is controlled. Patient has a good appetite. No complaints or concerns. Functional Status: Reports: Tolerating Diet - Review of Systems General: Reports: Weakness HEENT: Reports: No Symptoms Pulmonary: Reports: No Symptoms Cardiovascular: Reports: No Symptoms Gastrointestinal: Reports: No Symptoms Musculoskeletal: Reports: Neck Pain (controlled) Skin: Reports: No Symptoms Neurological: Reports: Other (pre-existing PSP symptoms) Psychiatric: Reports: No Symptoms - Patient Data Vitals - Most Recent: Last Vital Signs Temp 36.5 C 01/26/19 10:00 Pulse 84 01/26/19 10:00 Resp 18 01/26/19 10:00 BP 133/75 01/26/19 10:00 Pulse Ox 99 01/26/19 10:00 Weight - Most Recent: 53.615 kg I&O - Last 24 Hours: Intake & Output 01/25/19 01/26/19 01/26/19 22:59 06:59 14:59 Intake Total 620 0 1110 Balance 620 0 1110 Med Orders - Current: Current Medications Acetaminophen (Tylenol) 650 mg PO QID [facility] Last Admin: 01/26/19 11:02 Dose: 650 mg Hydrocodone Bitart/Acetaminophen ([place] 325-10 Mg) 1 tab PO TID PRN PRN Reason: Pain Last Admin: 01/24/19 17:31 Dose: 1 tab Artificial Tears (Liquitears 1.4% Ophth Soln) 1 - 2 ml EYEBOTH QID [facility] Last Admin: 01/26/19 11:03 Dose: 1 drop Carbidopa/Levodopa (Sinemet 25-100 Mg) 1 tab PO QID [facility] Last Admin: 01/26/19 11:03 Dose: 1 tab Duloxetine HCl (Cymbalta) 60 mg PO DAILY [facility] Last Admin: 01/26/19 08:16 Dose: 60 mg Ibuprofen (Motrin) 600 mg PO Q6H PRN PRN Reason: Pain Last Admin: 01/25/19 19:35 Dose: 600 mg Lactobacillus Acidophilus (Acidolphilus Extra Strength) 1 tab PO DAILY@1999 [facility] Last Admin: 01/25/19 19:36 Dose: 1 tab Lidocaine (Lidoderm 5%) 700 mg TRDERM DAILY [facility] Last Admin: 01/26/19 08:17 Dose: 700 mg Lorazepam (Ativan) 1 mg PO BEDTIME [facility] Last Admin: 01/25/19 19:36 Dose: 1 mg Lorazepam (Ativan) 1 mg PO Q6H PRN PRN Reason: Anxiety Last Admin: 01/25/19 13:39 Dose: 1 mg Melatonin (Melatonin) 6 mg PO QPM [facility] Last Admin: 01/25/19 19:36 Dose: 6 mg Methocarbamol (Robaxin) 750 mg PO BID PRN PRN Reason: Muscle Spasm Last Admin: 01/25/19 19:39 Dose: 750 mg Miscellaneous Information (Remove Patch) 1 ea TRDERM DAILY@2000 [facility] Last Admin: 01/25/19 19:39 Dose: 1 ea Multivitamins/Minerals (Thera M Plus) 1 tab PO DAILY@1130 [facility] Last Admin: 01/26/19 11:03 Dose: 1 tab Ondansetron HCl (Zofran Odt) 4 mg PO Q6H PRN PRN Reason: Nausea/Vomiting Last Admin: 01/01/19 09:15 Dose: 4 mg Pantoprazole Sodium (Protonix) 40 mg PO QPM [facility] Last Admin: 01/25/19 19:36 Dose: 40 mg Polyethylene Glycol (Miralax) 17 gm PO DAILY [facility] Last Admin: 01/26/19 08:19 Dose: 17 gm Senna/Docusate Sodium (Senna Plus) 1 tab PO DAILY [facility] Last Admin: 01/26/19 08:19 Dose: 1 tab Discontinued Medications Amoxicillin/Clavulanate Potassium (Augmentin 875 Mg/125 Mg) 1 tab PO BIDMEALS [facility] Stop: 01/25/19 23:59 Last Admin: 01/25/19 17:07 Dose: 1 tab Artificial Tears (Refresh Liquigel 1%) 0 ml EYEBOTH QPM [facility] Last Admin: 12/16/18 20:37 Dose: 2 drop Carbidopa/Levodopa (Sinemet 25-100 Mg) 1 tab PO TID [facility] Last Admin: 01/18/19 08:55 Dose: Not Given Ciprofloxacin (Ciprofloxacin Hcl) 500 mg PO BID [facility] Stop: 12/31/18 08:00 Last Admin: 12/31/18 07:50 Dose: 500 mg Ciprofloxacin (Ciprofloxacin Hcl) 500 mg PO BID [facility] Stop: 01/16/19 23:59 Last Admin: 01/16/19 19:59 Dose: 500 mg Cyclobenzaprine HCl (Flexeril) 10 mg PO ONETIME ONE Stop: 01/02/19 10:56 Last Admin: 01/02/19 12:02 Dose: 10 mg Cyclobenzaprine HCl (Flexeril) 10 mg PO TID PRN PRN Reason: Other Last Admin: 01/08/19 09:12 Dose: 10 mg Cyclobenzaprine HCl (Flexeril) 10 mg PO BEDTIME PRN PRN Reason: Other Last Admin: 01/13/19 19:38 Dose: 10 mg Cyclobenzaprine HCl (Flexeril) 10 mg PO BID PRN PRN Reason: Other Cyclobenzaprine HCl (Flexeril) Confirm Administered Dose 10 mg .ROUTE .STK-MED ONE Stop: 01/15/19 10:40 Last Admin: 01/15/19 10:45 Dose: 10 mg Diphenhydramine HCl (Benadryl) 50 mg IM ONETIME ONE Stop: 01/20/19 19:56 Last Admin: 01/20/19 20:10 Dose: 50 mg Haloperidol Lactate (Haldol) 5 mg IM ONETIME ONE Stop: 01/20/19 19:56 Last Admin: 01/20/19 20:10 Dose: 5 mg Ketorolac Tromethamine (Toradol) Confirm Administered Dose 10 mg .ROUTE .STK- MED ONE Stop: 12/27/18 17:15 Last Admin: 12/27/18 17:42 Dose: 10 mg Ketorolac Tromethamine (Toradol) 10 mg PO ONETIME ONE Stop: 12/27/18 17:41 Last Admin: 12/27/18 19:00 Dose: Not Given Ketorolac Tromethamine (Toradol) 30 mg IM ONETIME ONE Stop: 12/27/18 19:01 Last Admin: 12/27/18 18:30 Dose: 30 mg Lorazepam (Ativan) 0.5 mg PO Q8H PRN PRN Reason: Agitation Last Admin: 01/17/19 17:24 Dose: 0.5 mg Lorazepam (Ativan) Confirm Administered Dose 1 mg .ROUTE .STK-MED ONE Stop: 12/30/18 19:55 Last Admin: 12/30/18 20:00 Dose: Not Given Lorazepam (Ativan) Confirm Administered Dose 2 mg .ROUTE .STK-MED ONE Stop: 01/12/19 02:25 Last Admin: 01/12/19 02:36 Dose: 0.5 mg Lorazepam (Ativan) 0.5 mg IM ONETIME ONE Stop: 01/12/19 02:59 Last Admin: 01/12/19 08:48 Dose: Not Given Lorazepam (Ativan) Confirm Administered Dose 2 mg .ROUTE .STK-MED ONE Stop: 01/16/19 22:39 Last Admin: 01/16/19 23:56 Dose: 0.5 mg Lorazepam (Ativan) 0.5 mg IM ONETIME ONE Stop: 01/17/19 00:01 Last Admin: 01/17/19 06:22 Dose: Not Given Lorazepam (Ativan) 1 mg IM ONETIME ONE Stop: 01/20/19 03:46 Last Admin: 01/20/19 03:50 Dose: 1 mg Lorazepam (Ativan) 2 mg IM ONETIME ONE Stop: 01/20/19 19:56 Last Admin: 01/20/19 20:10 Dose: 2 mg Methocarbamol (Robaxin) Confirm Administered Dose 1,000 mg .ROUTE .STK-MED ONE Stop: 01/16/19 19:56 Last Admin: 01/16/19 20:05 Dose: Not Given Methocarbamol (Robaxin) Confirm Administered Dose 500 mg .ROUTE .STK-MED ONE Stop: 01/18/19 07:52 Last Admin: 01/18/19 09:00 Dose: Not Given Methocarbamol (Robaxin) Confirm Administered Dose 500 mg .ROUTE .STK-MED ONE Stop: 01/18/19 21:00 Last Admin: 01/19/19 02:55 Dose: Not Given Methocarbamol (Robaxin) Confirm Administered Dose 500 mg .ROUTE .STK-MED ONE Stop: 01/19/19 21:38 Last Admin: 01/19/19 21:50 Dose: Not Given Miscellaneous Information (Remove Patch) 1 ea TRDERM DAILY [facility] Last Admin: 12/18/18 10:43 Dose: Not Given Multivitamins/Minerals (Thera M Plus) 1 tab PO DAILY [facility] Last Admin: 12/26/18 08:03 Dose: 1 tab Tramadol HCl (Ultram) 50 mg PO Q8H PRN PRN Reason: Pain Tuberculin PPD (Aplisol) 5 unit IDERM ONETIME ONE Stop: 12/16/18 16:01 Last Admin: 12/16/18 16:30 Dose: 5 unit Tuberculin PPD (Aplisol) 5 unit IDERM ONETIME ONE Stop: 12/30/18 16:31 Last Admin: 12/30/18 16:08 Dose: 5 unit - Exam General: Alert, Cooperative HEENT: Pupils Equal, Pupils Reactive, EOMI Neck: Supple Lungs: Clear to Auscultation, Normal Respiratory Effort Cardiovascular: Regular Rate, Regular Rhythm GI/Abdominal Exam: Normal Bowel Sounds, Soft, Non-Tender Back Exam: Normal Inspection Extremities: Normal Inspection Peripheral Pulses: 2+: Dorsalis Pedis (L), Dorsalis Pedis (R) Skin: Warm, Dry, Intact Neurological: No New Focal Deficit Psy/Mental Status: Alert, Normal Affect, Normal Mood - Problem List & Annotations (1) Fracture of cervical spine without spinal cord lesion SNOMED Code(s): 012035897 Code(s): S12.9XXA - FRACTURE OF NECK, UNSPECIFIED, INITIAL ENCOUNTER Status : Acute Priority: High Current Visit: Yes Qualifiers: Encounter type: subsequent encounter Qualified Code(s): S12.9XXD - Fracture of neck, unspecified, subsequent encounter (2) Multiple facial bone fractures SNOMED Code(s): 558785978 Code(s): S02.92XA - UNSP FRACTURE OF FACIAL BONES, INIT FOR CLOS FX Status : Acute Priority: High Current Visit: Yes (3) Traumatic ecchymosis of forehead SNOMED Code(s): 820032000 Code(s): S00.83XA - CONTUSION OF OTHER PART OF HEAD, INITIAL ENCOUNTER Status: Acute Priority: High Current Visit: Yes - Problem List Review Problem List Initiated/Reviewed/Updated: Yes - Assessment Assessment:: 01-13-19 C1 comminuted fracture in C-collar Multiple recent facial fractures UTI Patient remains unchanged, wearing cervical collar or soft collar. Appetite good , needs assistance with feeding. Occasional coughing when drinking fluids. Denies pain. Some increase in confusion. UTI recurrence. - Plan Plan:: Patient admitted to swing bed for physical and occupational therapy and strengthening. We will continue to closely monitor C1-C2 management. Continue pain management. 01/01/19 Patient has improved function and strength. She has sundowning and has to be redirected often during the evening. She is eating well and does appear to be doing well. She has no concerns and will continue with current rehabilitation and management. 01/06/19 Continues to do well. Will continue with current rehabilitation and management. Consider move to assisted facility for continued OT/PT. 01-13-19 Continue with therapy for strengthening. Will treat UTI with Cipro bid. 01/16/19 Patient currently being treated for UTI on Cipro 500mg BID for a total of 5 days ending today. Pending cultures - will review. Continue rehabilitation and management as patient continues to have fluctuating neck pain. We will monitor pain and treat as needed with hydrocodone 5-325mg and monitor for sedation and constipation per shift and after administration of pain meds q2hrs prn. Patient will have difficulty taking care of self due to Progressive Supranuclear palsy. We will monitor Sinemet use to see if this does indeed improve any of her symptoms. Patient is definitely unsafe to be at home alone. Signed out to [facility] for the weekend. 01/19/19 Controlled neck pain at this time. Patient does get agitated at night and we will continue redirection and one-on-one standby for assistance. Continue close observation and having patient sitting next to staff for company. This has helped and we will continue close monitoring and assist. Continue current staff assisted feeding. Patient is unsafe for home and does have fluctuating cognition and agitation. We will continue current cares and plan of action. 01/26/19 Patient will continue current pain management and close monitoring. She continues to require redirection and one-on-one standby for assistance. Continue current assistance with meals. Continue monitoring agitation and redirection for sundowning or aggression. Continue staff monitoring and stand- by assist. We will have PT/OT re-assess.
[2019-01-26] MEDS: Acetaminophen/HYDROcodone 325-10 MG Tab PO PRN (20:53)
[2019-01-26] MEDS: Methocarbamol 750 MG Tab PO PRN (20:53)
[2019-01-26] MEDS: Pantoprazole 40 MG Tab.CR PO SCH (20:55)
[2019-01-26] MEDS: Melatonin 3 MG Tab PO SCH (20:55)
[2019-01-26] MEDS: Ibuprofen 600 MG Tab PO PRN (20:55)
[2019-01-26] MEDS: Lactobacillus Acidophilus/Lactobacillus Sporogenes (Probiotic) Tab PO SCH (20:56)
[2019-01-26] MEDS: LORazepam 1 MG Tab PO SCH (20:56)
[2019-01-27] MEDS: Acetaminophen 325 MG Tab PO SCH ×4 (09:25→23:51)
[2019-01-27] MEDS: DULoxetine 60 MG Cap PO SCH (09:26)
[2019-01-27] MEDS: Lidocaine 5% 700 MG Patch TRDERM SCH (09:27)
[2019-01-27] MEDS: Polyvinyl Alcohol 1.4% Ophth Soln 15 ML Bottle EYEBOTH SCH ×4 (09:27→19:56)
[2019-01-27] MEDS: Carbidopa/Levodopa 25-100 MG Tab PO SCH ×4 (09:28→23:51)
[2019-01-27] MEDS: Acetaminophen/HYDROcodone 325-10 MG Tab PO PRN (09:28)
[2019-01-27] MEDS: Polyethylene Glycol 3350 Powder 17 GM Packet PO SCH (09:28)
[2019-01-27] MEDS: Ibuprofen 600 MG Tab PO PRN (12:33)
[2019-01-27] MEDS: Multivitamins with Iron/Calcium/Folic Acid/Minerals Tab PO SCH (12:37)
[2019-01-27] MEDS: Pantoprazole 40 MG Tab.CR PO SCH (19:53)
[2019-01-27] MEDS: Melatonin 3 MG Tab PO SCH (19:53)
[2019-01-27] MEDS: LORazepam 1 MG Tab PO SCH (19:54)
[2019-01-27] MEDS: Lactobacillus Acidophilus/Lactobacillus Sporogenes (Probiotic) Tab PO SCH (19:54)
[2019-01-28] MEDS: Polyethylene Glycol 3350 Powder 17 GM Packet PO SCH (08:51)
[2019-01-28] MEDS: Acetaminophen 325 MG Tab PO SCH ×4 (08:51→21:08)
[2019-01-28] MEDS: DULoxetine 60 MG Cap PO SCH (08:51)
[2019-01-28] MEDS: Lidocaine 5% 700 MG Patch TRDERM SCH (08:51)
[2019-01-28] MEDS: Ibuprofen 600 MG Tab PO PRN ×2 (08:52→16:01)
[2019-01-28] MEDS: Methocarbamol 750 MG Tab PO PRN (08:53)
[2019-01-28] MEDS: Polyvinyl Alcohol 1.4% Ophth Soln 15 ML Bottle EYEBOTH SCH ×4 (08:53→21:10)
[2019-01-28] MEDS: Carbidopa/Levodopa 25-100 MG Tab PO SCH ×4 (08:53→21:09)
[2019-01-28] MEDS: Multivitamins with Iron/Calcium/Folic Acid/Minerals Tab PO SCH (12:43)
[2019-01-28] MEDS: Acetaminophen/HYDROcodone 325-10 MG Tab PO PRN ×2 (12:53→16:46)
--- NOTE | 2019-01-28 14:53 | PCM.SN ---
- Free Text/Narrative Note: Patient plan for discharge on January. Patient needs to be transferred by ambulance for non-emergent transfer and requires one to one care due to her physical and mental conditions. Discharge planning for tomorrow.
[2019-01-28] MEDS: LORazepam 1 MG Tab PO SCH (21:05)
[2019-01-28] MEDS: Lactobacillus Acidophilus/Lactobacillus Sporogenes (Probiotic) Tab PO SCH (21:06)
[2019-01-28] MEDS: Pantoprazole 40 MG Tab.CR PO SCH (21:06)
[2019-01-28] MEDS: Melatonin 3 MG Tab PO SCH (21:08)
[2019-01-29] MEDS: Lidocaine 5% 700 MG Patch TRDERM SCH (08:26)
[2019-01-29] MEDS: Polyethylene Glycol 3350 Powder 17 GM Packet PO SCH (08:26)
[2019-01-29] MEDS: Ibuprofen 600 MG Tab PO PRN (08:27)
[2019-01-29] MEDS: Polyvinyl Alcohol 1.4% Ophth Soln 15 ML Bottle EYEBOTH SCH (08:27)
[2019-01-29] MEDS: Carbidopa/Levodopa 25-100 MG Tab PO SCH (08:27)
[2019-01-29] MEDS: Acetaminophen 325 MG Tab PO SCH (08:28)
[2019-01-29] MEDS: Methocarbamol 750 MG Tab PO PRN (08:28)
[2019-01-29] MEDS: DULoxetine 60 MG Cap PO SCH (08:28)
--- NOTE | 2019-01-29 10:54 | PCM.DCSUM1 ---
Discharge Summary - Discharge Data Discharge Date: 01/29/19 Discharge Disposition: DC/Tfer to [facility] Condition: Good - Discharge Diagnosis/Problem(s) (1) Fracture of cervical spine without spinal cord lesion SNOMED Code(s): 562002066 ICD Code: S12.9XXA - FRACTURE OF NECK, UNSPECIFIED, INITIAL ENCOUNTER Status: Acute Priority: High Qualifiers: Encounter type: subsequent encounter Qualified Code(s): S12.9XXD - Fracture of neck, unspecified, subsequent encounter (2) Multiple facial bone fractures SNOMED Code(s): 634769120 ICD Code: S02.92XA - UNSP FRACTURE OF FACIAL BONES, INIT FOR CLOS FX Status : Acute Priority: High (3) Traumatic ecchymosis of forehead SNOMED Code(s): 367553085 ICD Code: S00.83XA - CONTUSION OF OTHER PART OF HEAD, INITIAL ENCOUNTER Status: Acute Priority: High - Patient Summary/Data Consults: Consultations 12/16/18 13:26 Consult to [employer] [CONS] Routine Comment: Physician Instructions: Quantity: Consult to Home Health [CONS] Routine Comment: Physician Instructions: Consult to Infection Prevention [CONS] Routine Comment: Physician Instructions: OT Evaluation and Treatment [CONS] Routine Please Evaluate and Treat. OT Reason for Consult: ADL's This query below is only for informational purposes and is not editable. Admission Diagnosis/Problem: Weakness PT Evaluation and Treatment [CONS] Routine Please Evaluate and Treat. PT Reason for Consult: Strengthening This query below is only for informational purposes and is not editable. Admission Diagnosis/Problem: Weakness 12/17/18 07:58 Consult to Speech Language Pathology [[employer]ATMENT SUPERVISOR Evaluation and Treatment] [CONS] Routine Please Evaluate and Treat [employer]OR Reason for Consult: Dysphagia This query below is only for informational purposes and is not editable. Admission Diagnosis/Problem: Weakness - Patient Instructions Diet: Usual Diet as Tolerated Activity: As Tolerated Driving: Do Not Drive - Discharge Plan Home Medications: Home Meds Acetaminophen [Tylenol] 650 mg PO QID 12/16/18 [History] Carbidopa/Levodopa [Carbidopa-Levo ER 25-100] 1 each PO TID 12/16/18 [History] Carboxymethylcellulos/Glycerin [Refresh Optive] 1 drop EYEBOTH QID 12/16/18 [ History] Carboxymethylcellulose Sodium [Refresh Liquigel 1% Ophth Soln] 2 drop OP QPM [History] DULoxetine [Cymbalta] 60 mg PO DAILY 12/16/18 [History] Dextran 70/Hypromellose [Artificial Tears] 1 - 2 drop OP BID PRN 12/16/18 [ History] Ibuprofen 600 mg PO Q6H PRN 12/16/18 [History] Lidocaine [Aspercreme] 1 each TP Q12H 12/16/18 [History] Melatonin 6 mg PO QPM 12/16/18 [History] Pantoprazole Sodium [Protonix] 40 mg PO QPM 12/16/18 [History] Polyethylene Glycol 3350 [MiraLAX] 17 gm PO DAILY 12/16/18 [History] Sennosides/Docusate Sodium [Senna-Docusate Sodium Tablet] 1 each PO DAILY [History] Vitamin B Complex [B Complex] 1 each PO DAILY 12/16/18 [History] - Discharge Summary/Plan Comment DC Time >30 min.: Yes Discharge Summary/Plan Comment: Patient to be discharged to Care center in [place]. Papers faxed and information sent. Patient will continue on current medications. Discussed with patient and she does have understanding of the transfer. - Patient Data Vitals - Most Recent: Last Vital Signs Temp 36.2 C 01/29/19 08:00 Pulse 80 01/29/19 08:00 Resp 18 01/29/19 08:00 BP 111/72 01/29/19 08:00 Pulse Ox 96 01/29/19 08:00 Weight - Most Recent: 53.615 kg I&O - Last 24 hours: Intake & Output 01/28/19 01/29/19 01/29/19 22:59 06:59 14:59 Intake Total 900 120 Balance 900 120 Med Orders - Current: Current Medications Discontinued Medications Acetaminophen (Tylenol) 650 mg PO QID AYDNI Last Admin: 01/29/19 08:28 Dose: 650 mg Hydrocodone Bitart/Acetaminophen ([place] 325-10 Mg) 1 tab PO TID PRN PRN Reason: Pain Last Admin: 01/28/19 16:46 Dose: 1 tab Amoxicillin/Clavulanate Potassium (Augmentin 875 Mg/125 Mg) 1 tab PO BIDMEALS [facility] Stop: 01/25/19 23:59 Last Admin: 01/25/19 17:07 Dose: 1 tab Artificial Tears (Refresh Liquigel 1%) 0 ml EYEBOTH QPM [facility] Last Admin: 12/16/18 20:37 Dose: 2 drop Artificial Tears (Liquitears 1.4% Ophth Soln) 1 - 2 ml EYEBOTH QID [facility] Last Admin: 01/29/19 08:27 Dose: 1 drop Carbidopa/Levodopa (Sinemet 25-100 Mg) 1 tab PO TID [facility] Last Admin: 01/18/19 08:55 Dose: Not Given Carbidopa/Levodopa (Sinemet 25-100 Mg) 1 tab PO QID [facility] Last Admin: 01/29/19 08:27 Dose: 1 tab Ciprofloxacin (Ciprofloxacin Hcl) 500 mg PO BID [facility] Stop: 12/31/18 08:00 Last Admin: 12/31/18 07:50 Dose: 500 mg Ciprofloxacin (Ciprofloxacin Hcl) 500 mg PO BID [facility] Stop: 01/16/19 23:59 Last Admin: 01/16/19 19:59 Dose: 500 mg Cyclobenzaprine HCl (Flexeril) 10 mg PO ONETIME ONE Stop: 01/02/19 10:56 Last Admin: 01/02/19 12:02 Dose: 10 mg Cyclobenzaprine HCl (Flexeril) 10 mg PO TID PRN PRN Reason: Other Last Admin: 01/08/19 09:12 Dose: 10 mg Cyclobenzaprine HCl (Flexeril) 10 mg PO BEDTIME PRN PRN Reason: Other Last Admin: 01/13/19 19:38 Dose: 10 mg Cyclobenzaprine HCl (Flexeril) 10 mg PO BID PRN PRN Reason: Other Cyclobenzaprine HCl (Flexeril) Confirm Administered Dose 10 mg .ROUTE .STK-MED ONE Stop: 01/15/19 10:40 Last Admin: 01/15/19 10:45 Dose: 10 mg Diphenhydramine HCl (Benadryl) 50 mg IM ONETIME ONE Stop: 01/20/19 19:56 Last Admin: 01/20/19 20:10 Dose: 50 mg Duloxetine HCl (Cymbalta) 60 mg PO DAILY [facility] Last Admin: 01/29/19 08:28 Dose: 60 mg Haloperidol Lactate (Haldol) 5 mg IM ONETIME ONE Stop: 01/20/19 19:56 Last Admin: 01/20/19 20:10 Dose: 5 mg Ibuprofen (Motrin) 600 mg PO Q6H PRN PRN Reason: Pain Last Admin: 01/29/19 08:27 Dose: 600 mg Ketorolac Tromethamine (Toradol) Confirm Administered Dose 10 mg .ROUTE .STK- MED ONE Stop: 12/27/18 17:15 Last Admin: 12/27/18 17:42 Dose: 10 mg Ketorolac Tromethamine (Toradol) 10 mg PO ONETIME ONE Stop: 12/27/18 17:41 Last Admin: 12/27/18 19:00 Dose: Not Given Ketorolac Tromethamine (Toradol) 30 mg IM ONETIME ONE Stop: 12/27/18 19:01 Last Admin: 12/27/18 18:30 Dose: 30 mg Lactobacillus Acidophilus (Acidolphilus Extra Strength) 1 tab PO DAILY@1999 [facility] Last Admin: 01/28/19 21:06 Dose: 1 tab Lidocaine (Lidoderm 5%) 700 mg TRDERM DAILY [facility] Last Admin: 01/29/19 08:26 Dose: 700 mg Lorazepam (Ativan) 0.5 mg PO Q8H PRN PRN Reason: Agitation Last Admin: 01/17/19 17:24 Dose: 0.5 mg Lorazepam (Ativan) 1 mg PO BEDTIME [facility] Last Admin: 01/28/19 21:05 Dose: 1 mg Lorazepam (Ativan) Confirm Administered Dose 1 mg .ROUTE .STK-MED ONE Stop: 12/30/18 19:55 Last Admin: 12/30/18 20:00 Dose: Not Given Lorazepam (Ativan) Confirm Administered Dose 2 mg .ROUTE .STK-MED ONE Stop: 01/12/19 02:25 Last Admin: 01/12/19 02:36 Dose: 0.5 mg Lorazepam (Ativan) 0.5 mg IM ONETIME ONE Stop: 01/12/19 02:59 Last Admin: 01/12/19 08:48 Dose: Not Given Lorazepam (Ativan) Confirm Administered Dose 2 mg .ROUTE .STK-MED ONE Stop: 01/16/19 22:39 Last Admin: 01/16/19 23:56 Dose: 0.5 mg Lorazepam (Ativan) 0.5 mg IM ONETIME ONE Stop: 01/17/19 00:01 Last Admin: 01/17/19 06:22 Dose: Not Given Lorazepam (Ativan) 1 mg PO Q6H PRN PRN Reason: Anxiety Last Admin: 01/25/19 13:39 Dose: 1 mg Lorazepam (Ativan) 1 mg IM ONETIME ONE Stop: 01/20/19 03:46 Last Admin: 01/20/19 03:50 Dose: 1 mg Lorazepam (Ativan) 2 mg IM ONETIME ONE Stop: 01/20/19 19:56 Last Admin: 01/20/19 20:10 Dose: 2 mg Melatonin (Melatonin) 6 mg PO QPM [facility] Last Admin: 01/28/19 21:08 Dose: 6 mg Methocarbamol (Robaxin) 750 mg PO BID PRN PRN Reason: Muscle Spasm Last Admin: 01/29/19 08:28 Dose: 750 mg Methocarbamol (Robaxin) Confirm Administered Dose 1,000 mg .ROUTE .STK-MED ONE Stop: 01/16/19 19:56 Last Admin: 01/16/19 20:05 Dose: Not Given Methocarbamol (Robaxin) Confirm Administered Dose 500 mg .ROUTE .STK-MED ONE Stop: 01/18/19 07:52 Last Admin: 01/18/19 09:00 Dose: Not Given Methocarbamol (Robaxin) Confirm Administered Dose 500 mg .ROUTE .STK-MED ONE Stop: 01/18/19 21:00 Last Admin: 01/19/19 02:55 Dose: Not Given Methocarbamol (Robaxin) Confirm Administered Dose 500 mg .ROUTE .STK-MED ONE Stop: 01/19/19 21:38 Last Admin: 01/19/19 21:50 Dose: Not Given Miscellaneous Information (Remove Patch) 1 ea TRDERM DAILY [facility] Last Admin: 12/18/18 10:43 Dose: Not Given Miscellaneous Information (Remove Patch) 1 ea TRDERM DAILY@2000 [facility] Last Admin: 01/28/19 21:37 Dose: Not Given Multivitamins/Minerals (Thera M Plus) 1 tab PO DAILY [facility] Last Admin: 12/26/18 08:03 Dose: 1 tab Multivitamins/Minerals (Thera M Plus) 1 tab PO DAILY@1130 [facility] Last Admin: 01/28/19 12:43 Dose: 1 tab Ondansetron HCl (Zofran Odt) 4 mg PO Q6H PRN PRN Reason: Nausea/Vomiting Last Admin: 01/01/19 09:15 Dose: 4 mg Pantoprazole Sodium (Protonix) 40 mg PO QPM [facility] Last Admin: 01/28/19 21:06 Dose: 40 mg Polyethylene Glycol (Miralax) 17 gm PO DAILY [facility] Last Admin: 01/29/19 08:26 Dose: 17 gm Senna/Docusate Sodium (Senna Plus) 1 tab PO DAILY [facility] Last Admin: 01/29/19 08:28 Dose: 1 tab Tramadol HCl (Ultram) 50 mg PO Q8H PRN PRN Reason: Pain Tuberculin PPD (Aplisol) 5 unit IDERM ONETIME ONE Stop: 12/16/18 16:01 Last Admin: 12/16/18 16:30 Dose: 5 unit Tuberculin PPD (Aplisol) 5 unit IDERM ONETIME ONE Stop: 12/30/18 16:31 Last Admin: 12/30/18 16:08 Dose: 5 unit
== END 2019-01-29 09:45 | DRG 948 ==
LOC: LB.MS 13:00 → UNDOADMIN 13:00 → LB.MS 13:26
PROVIDERS: ADMIT Family Medicine; ATTEND Family Medicine
DX: R53.1 Weakness (principal); G23.1 Progressive supranuclear ophthalmoplegia [Steele-Richardson-Olszewski]; F05 Delirium due to known physiological condition; N39.0 Urinary tract infection, site not specified; K21.9 Gastro-esophageal reflux disease without esophagitis; G20 Parkinson's disease; F03.90 Unspecified dementia, unspecified severity, without behavioral disturbance, psychotic disturbance, mood disturbance, and anxiety; S12.000D Unspecified displaced fracture of first cervical vertebra, subsequent encounter for fracture with routine healing; S12.100D Unspecified displaced fracture of second cervical vertebra, subsequent encounter for fracture with routine healing; S00.81XA Abrasion of other part of head, initial encounter; W18.30XA Fall on same level, unspecified, initial encounter; S02.92XD Unspecified fracture of facial bones, subsequent encounter for fracture with routine healing; Z79.899 Other long term (current) drug therapy; Z88.8 Allergy status to other drugs, medicaments and biological substances; Z66 Do not resuscitate
CPT/HCPCS: 36415; 70450; 72040; 72125; 80053; 81001; 85025; 86580; 87086; 87088; 87186; 92526-GN; 92610-GN; 97110-GO; 97110-GP; 97116-GP; 97140-GP; 97161-GP; 97164-GP; 97165-GO; 97530-GO; 97530-GP; 97535-GO; A9270-GY; J1200; J1630; J1885; J2060